=== PATIENT | male | born 1995 | race Caucasian/White ===

== ENCOUNTER 2018-02-08 11:33 | Emergency (ER) | payer BC, SELFPAY ==
[2018-02-08 11:56] VITALS: BP 131/82; PULSE 83; RESP 16; TEMP 36.5; O2SAT 97
--- NOTE | 2018-02-08 12:05 | W.ED.GENAD ---
Discharge Plan Disposition Patient Disposition: HOME Condition: Good Discharge Details Chief Complaint: RespSymp Clinical Impression: URI, acute, Sinusitis Primary Care Provider: Ajit Barone ED Provider: Eyal Pederson Home Meds and New Rx's Prescriptions: New mometasone [Nasonex] 50 mcg/actuation spray,non-aerosol 2 spray CANDELARIA DAILY Qty: 17 RF: 0 azithromycin 500 mg tablet See Label Instructions .ROUTE .COMPLEX Qty: 6 RF: 0 benzonatate [Tessalon Perles] 100 mg capsule 100 mg PO TID PRN (Reason: cough) Qty: 20 RF: 0 Discharge Instructions Instructions: Sinusitis (ED) Additional Instructions: Please take the medication as directed. Please use ibuprofen for your throat pain. Please stop smoking. If you notice any worsening of your symptoms, or any new symptoms such as vomiting, diarrhea, fever, chills, shortness of breath, chest pain, numbness, weakness, or fainting , please return immediately to the emergency department for reevaluation. Please follow up with your primary care provider as soon as possible for reassessment and reevaluation. As always, it was a pleasure participating in your medical care today. Stand Alone Forms: Work Release Referrals: Ajit Barone MD [Primary Care Provider] - Medical Decision Making This is a 22-year-old male with no significant past medical history except for tobacco abuse who presents today for evaluation of upper respiratory infection symptoms. For the last 10-12 days he has had these symptoms, with congestion, runny nose, minimal posterior oropharynx irritation, and cough. Centor criterion are low, he shows no clinical signs of strep throat at this time with no significant erythema, no tender cervical lymphadenopathy, he does have a cough, and he has no fever. Signs and symptoms are consistent with an upper respiratory infection compounded by sinusitis. Lung sounds are clear, vital signs are normal, no tachycardia or hypoxemia. This time with his notable congestion, and signs of sinusitis with mild tenderness on percussion of the frontal and maxillary sinuses I feel he would benefit from treatment. We will give intranasal steroid, one order of Decadron, azithromycin, and Tessalon Perles. We discussed red flags for which to return the patient understands. I have extensively reviewed the treatment plan and discharge instructions with the patient. I have addressed all patient concerns at this time. The patient was made aware of what symptoms to monitor for that would warrant a return to the emergency department. Discussed the plan with the patient, they demonstrate verbal understanding and agreement with our assessment and plan at this time. HPI General Date/Time Provider Initiated Documentation: 02/08/18 11:57. HPI Narrative: This is a 22-year-old male with a past medical history of tobacco abuse smoking roughly 1 pack/day, who presents today for evaluation of upper respiratory infection symptoms. Patient states that for the last 12 days he has had mild congestion, mild cough, stuffiness in his nose, postnasal drip, some runny nose. 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 He has had no significant associated diarrhea. He always wears his mask at work. He denies any fevers, Reiger's, or systemic symptoms. He denies any hemoptysis he does admit to some yellow productive sputum.. Denies PE risk factors such as recent long car rides, immobilization, recent surgery, prior history of DVT or PE, family history of PE or DVT, morbid obesity, exogenous estrogen and smoking, hemoptysis, history of cancer. Patient does admit to multiple other sick contacts at his work with similar symptoms, including symptoms of xluc-zupw-hkd-mouth disease. Patient denies any other complaints at this time. He denies any recent surgeries. He denies any IV or illicit drug use but does admit to marijuana use in addition to his marijuana use. Related Data Home Medications Medication Instructions Recorded Confirmed azithromycin See Label Instructions .ROUTE 02/08/18 .COMPLEX #6 tab benzonatate [Tessalon Perles] 100 mg PO TID PRN #20 cap 02/08/18 mometasone [Nasonex] 2 spray CANDELARIA DAILY #17 gm 02/08/18 Previous Rx's Medication Instructions Recorded azithromycin See Label Instructions .ROUTE 02/08/18 .COMPLEX #6 tab benzonatate [Tessalon Perles] 100 mg PO TID PRN #20 cap 02/08/18 mometasone [Nasonex] 2 spray CANDELARIA DAILY #17 gm 02/08/18 Allergies Allergy/AdvReac Type Severity Reaction Status Date / Time penicillamine Allergy Mild Skin Rash Unverified 02/08/18 12:01 General Stated Complaint: RespSymp OLEKSANDR: 5 Review of Systems Review of Systems All systems reviewed & are unremarkable except as noted in HPI and below PFSH Social History Smoking/Tobacco Use Status: Current every day Exam Narrative Exam Narrative: 1.Const: Well-nourished, Well-developed, appearing stated age 2.Eyes: PERRL, no conjunctival injection, and symmetrical lids. 3.ENT: Atraumatic external nose and ears. Moist MM. Neck: Symmetric, trachea midline, No thyromegaly. Mild cobblestoning of the posterior oropharynx. No significant tonsillar exudate, uvula is midline. No anterior cervical lymphadenopathy. Panic membranes are alexis, pearly, and show no signs of effusion. Head patient demonstrates no signs of meningeal signs. Patient demonstrates good movement of cervical neck. There is no nuchal rigidity, no nuchal tenderness. Patient is able to flex the neck without any difficulty or significant pain. Negative Kernig's and Brudzinski sign. Nasal passageways demonstrates red, erythematous, and irritable appearing naris and turbinates. 4.CVS: +S1/S2, No murmurs or gallops. Peripheral pulses 2+ and equal in all extremities. Brisk capillary refill in all extremities. 5.RESP: Unlabored respiratory effort. Clear to auscultation bilaterally. No wheezes rales or rhonchi. No evidence of abnormal lung sounds. 6.GI: Soft, Nontender/Nondistended, No hepatosplenomegaly. No guarding or rebound. 7.MSK: Normocephalic/Atraumatic, Extremities w/o deformity or ttp No cyanosis or clubbing, Normal movement of all extremities 8.Skin: Warm, Dry. No rashes or lesions. No evidence of lesions on the hands, feet, or the oral mucosa. No clinical evidence of uxna-dxyj-qpw-mouth disease 9.Neuro: range ecologist II-XII grossly intact. Sensation grossly intact, no focal neurologic deficits. 10.Psych: (AAO) x3. Appropriate mood and affect Course Vital Signs Temperature 36.5 C 02/08/18 11:56 Pulse 83 02/08/18 11:56 Respiratory Rate 16 02/08/18 11:56 Blood Pressure 131/82 02/08/18 11:56 Pulse Oximetry 97 02/08/18 11:56 Temperature 36.5 C 02/08/18 11:56 Temperature Source Skin 02/08/18 11:56 Pulse 83 02/08/18 11:56 Respiratory Rate 16 02/08/18 11:56 Respiratory Effort Non-Labored 02/08/18 11:56 Blood Pressure 131/82 02/08/18 11:56 Pulse Oximetry 97 02/08/18 11:56 Pain Level 5 02/08/18 11:56
[2018-02-08] MEDS: Dexamethasone 4 MG TAB 10 MG PO ×2 (12:06)
--- NOTE | 2018-02-08 12:11 | ED.GENADUL_ITS ---
Discharge Plan Disposition Patient Disposition: HOME Condition: Good Discharge Details Chief Complaint: RespSymp Clinical Impression: URI, acute, Sinusitis Primary Care Provider: Ajit Barone ED Provider: Eyal Pederson Home Meds and New Rx's Prescriptions: New mometasone [Nasonex] 50 mcg/actuation spray,non-aerosol 2 spray CANDELARIA DAILY Qty: 17 RF: 0 azithromycin 500 mg tablet See Label Instructions .ROUTE .COMPLEX Qty: 6 RF: 0 benzonatate [Tessalon Perles] 100 mg capsule 100 mg PO TID PRN (Reason: cough) Qty: 20 RF: 0 Discharge Instructions Instructions: Sinusitis (ED) Additional Instructions: Please take the medication as directed. Please use ibuprofen for your throat pain. Please stop smoking. If you notice any worsening of your symptoms, or any new symptoms such as vomiting, diarrhea, fever, chills, shortness of breath , chest pain, numbness, weakness, or fainting , please return immediately to the emergency department for reevaluation. Please follow up with your primary care provider as soon as possible for reassessment and reevaluation. As always, it was a pleasure participating in your medical care today. Stand Alone Forms: Work Release Referrals: Ajit Barone MD [Primary Care Provider] - Medical Decision Making This is a 22-year-old male with no significant past medical history except for tobacco abuse who presents today for evaluation of upper respiratory infection symptoms. For the last 10-12 days he has had these symptoms, with congestion, runny nose, minimal posterior oropharynx irritation, and cough. Centor criterion are low, he shows no clinical signs of strep throat at this time with no significant erythema, no tender cervical lymphadenopathy, he does have a cough, and he has no fever. Signs and symptoms are consistent with an upper respiratory infection compounded by sinusitis. Lung sounds are clear, vital signs are normal, no tachycardia or hypoxemia. This time with his notable congestion, and signs of sinusitis with mild tenderness on percussion of the frontal and maxillary sinuses I feel he would benefit from treatment. We will give intranasal steroid, one order of Decadron, azithromycin, and Tessalon Perles. We discussed red flags for which to return the patient understands. I have extensively reviewed the treatment plan and discharge instructions with the patient. I have addressed all patient concerns at this time. The patient was made aware of what symptoms to monitor for that would warrant a return to the emergency department. Discussed the plan with the patient, they demonstrate verbal understanding and agreement with our assessment and plan at this time. HPI General Date/Time Provider Initiated Documentation: 02/08/18 11:57 . HPI Narrative: This is a 22-year-old male with a past medical history of tobacco abuse smoking roughly 1 pack/day, who presents today for evaluation of upper respiratory infection symptoms. Patient states that for the last 12 days he has had mild congestion, mild cough, stuffiness in his nose, postnasal drip, some runny nose. 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 He has had no significant associated diarrhea. He always wears his mask at work. He denies any fevers, Reiger's, or systemic symptoms. He denies any hemoptysis he does admit to some yellow productive sputum.. Denies PE risk factors such as recent long car rides, immobilization, recent surgery, prior history of DVT or PE, family history of PE or DVT, morbid obesity, exogenous estrogen and smoking , hemoptysis, history of cancer. Patient does admit to multiple other sick contacts at his work with similar symptoms, including symptoms of krdg-jjxc-ill- mouth disease. Patient denies any other complaints at this time. He denies any recent surgeries. He denies any IV or illicit drug use but does admit to marijuana use in addition to his marijuana use. Related Data Home Medications Medication Instructions Recorded Confirmed azithromycin See Label Instructions .ROUTE 02/08/18 .COMPLEX #6 tab benzonatate [Tessalon Perles] 100 mg PO TID PRN #20 cap 02/08/18 mometasone [Nasonex] 2 spray CANDELARIA DAILY #17 gm 02/08/18 Previous Rx's Medication Instructions Recorded azithromycin See Label Instructions .ROUTE 02/08/18 .COMPLEX #6 tab benzonatate [Tessalon Perles] 100 mg PO TID PRN #20 cap 02/08/18 mometasone [Nasonex] 2 spray CANDELARIA DAILY #17 gm 02/08/18 Allergies Allergy/AdvReac Type Severity Reaction Status Date / Time penicillamine Allergy Mild Skin Rash Unverified 02/08/18 12:01 General Stated Complaint: RespSymp OLEKSANDR: 5 Review of Systems Review of Systems All systems reviewed & are unremarkable except as noted in HPI and below PFSH Social History Smoking/Tobacco Use Status: Current every day Exam Narrative Exam Narrative: 1.Const: Well-nourished, Well-developed, appearing stated age 2.Eyes: PERRL, no conjunctival injection, and symmetrical lids. 3.ENT: Atraumatic external nose and ears. Moist MM. Neck: Symmetric, trachea midline, No thyromegaly. Mild cobblestoning of the posterior oropharynx. No significant tonsillar exudate, uvula is midline. No anterior cervical lymphadenopathy. Panic membranes are alexis, pearly, and show no signs of effusion. Head patient demonstrates no signs of meningeal signs. Patient demonstrates good movement of cervical neck. There is no nuchal rigidity, no nuchal tenderness. Patient is able to flex the neck without any difficulty or significant pain. Negative Kernig's and Brudzinski sign. Nasal passageways demonstrates red, erythematous, and irritable appearing naris and turbinates. 4.CVS: +S1/S2, No murmurs or gallops. Peripheral pulses 2+ and equal in all extremities. Brisk capillary refill in all extremities. 5.RESP: Unlabored respiratory effort. Clear to auscultation bilaterally. No wheezes rales or rhonchi. No evidence of abnormal lung sounds. 6.GI: Soft, Nontender/Nondistended, No hepatosplenomegaly. No guarding or rebound. 7.MSK: Normocephalic/Atraumatic, Extremities w/o deformity or ttp No cyanosis or clubbing, Normal movement of all extremities 8.Skin: Warm, Dry. No rashes or lesions. No evidence of lesions on the hands, feet, or the oral mucosa. No clinical evidence of galu-aotc-kwm-mouth disease 9.Neuro: train attendant II-XII grossly intact. Sensation grossly intact, no focal neurologic deficits. 10.Psych: (AAO) x3. Appropriate mood and affect Course Vital Signs Temperature 36.5 C 02/08/18 11:56 Pulse 83 02/08/18 11:56 Respiratory Rate 16 02/08/18 11:56 Blood Pressure 131/82 02/08/18 11:56 Pulse Oximetry 97 02/08/18 11:56 Temperature 36.5 C 02/08/18 11:56 Temperature Source Skin 02/08/18 11:56 Pulse 83 02/08/18 11:56 Respiratory Rate 16 02/08/18 11:56 Respiratory Effort Non-Labored 02/08/18 11:56 Blood Pressure 131/82 02/08/18 11:56 Pulse Oximetry 97 02/08/18 11:56 Pain Level 5 02/08/18 11:56
== END 2018-02-08 12:05 | disposition home or self-care (01) ==
PROVIDERS: Emergency Provider Student in an Organized Health Care Education/Training Program; PCP Internal Medicine
DX: J06.9 Acute upper respiratory infection, unspecified (principal); J01.90 Acute sinusitis, unspecified; F17.210 Nicotine dependence, cigarettes, uncomplicated
CPT/HCPCS: 99283; J8540

== ENCOUNTER 2018-05-01 11:24 | Emergency (ER) | payer BC, SELFPAY ==
[2018-05-01] VITALS (10 sets, daily range): BP systolic 108–128; BP diastolic 58–72; PULSE 64–96; RESP 16–26; TEMP 36.6–37.1; O2SAT 94–100
--- NOTE | 2018-05-01 11:31 | W.ED.GENAD ---
Discharge Plan Disposition Patient Disposition: HOME Discharge Details Chief Complaint: Seizure Clinical Impression: Observed seizure-like activity Primary Care Provider: Ajit Barone ED Provider: Matthew Cruz Home Meds and New Rx's Prescriptions: No Action sertraline 50 mg Tablet 50 mg PO DAILY AM RF: 0 Discharge Instructions Instructions: New-Onset Seizure in Adults (ED) Additional Instructions: Please follow-up with your doctor. Call tomorrow. Please follow-up with neurology. Please contact your primary care physician to arrange follow-up. No driving a motor vehicle or operating heavy machinery until you are cleared to do so. If he were to have a recurrent seizure while driving a car or operating machinery this may result in injury or to yourself or others. You must be cleared by a doctor before you return to driving or operating heavy machinery. Return to the ER for any worsening or new concerning symptoms. Stand Alone Forms: Work Release Referrals: Ajit Barone MD [Primary Care Provider] - Lidia Marin MD [ [facility] STAFF PHYSICIAN] - Medical Decision Making 11:35 --patient arrives with EMS and seen immediately on arrival. 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 Consider acute life-threatening intracranial hemorrhage: Plan to obtain stat CT head. Patient obtunded on my exam but intermittently combative here per nursing. I will order ketamine to be administered to allow for CT imaging if necessary for acute agitation. --CT of the head interpreted by radiology: No acute intracranial hemorrhage. There is nonspecific fluid within the ethmoid sinuses and right maxillary sinus. Family here with patient and updated as to plan. --15:35 --patient reassessed and is fully alert and oriented. He is requesting discharge. Patient has mild headache. He was given a Tylenol for this. He has no neck pain or stiffness. Negative Kernig and Brudzinski sign. Given exam findings I feel that bacterial meningitis is not present. Patient has no sinus pain. Patient will require follow-up with neurology for new onset seizure. I will asked care management to assist in arranging this follow-up. Disposition decision was made weighing the risks and benefits of hospitalization versus outpatient treatment, the risk for further decompensation, and the patient's wishes. The patient was stable and requested discharge. Prior to discharge, my usual and customary return precautions were reviewed with the patient - this included follow-up instructions and reason to return to the emergency department if condition worsens, does not improve as expected, or other new concerns arise. HPI General Mode of arrival: EMS. Date/Time Provider Initiated Documentation: 05/01/18 11:29. Limitations to Documentation: altered mental status. Information obtained by: EMS. HPI Narrative: 23-year-old male with history of ADHD, arrives with EMS with altered mental status. History and review of systems limited secondary to altered mental status. Per EMS, patient significant other noted that he was complaining of generally not feeling well yesterday, he was on the toilet this morning and had seizure-like activity and was unconscious. When EMS arrived they found him to be somnolent and then quite aggressive and agitated and lacking capacity. He was given Versed 10 mg x2 by EMS and became more sedate. Related Data Home Medications Medication Instructions Recorded Confirmed sertraline 50 mg PO DAILY AM 05/01/18 05/01/18 Allergies Allergy/AdvReac Type Severity Reaction Status Date / Time penicillamine Allergy Mild Skin Rash Unverified 05/01/18 12:22 erythromycin base AdvReac Unverified 05/01/18 12:25 sulfamethoxazole AdvReac Unverified 05/01/18 12:25 [From Bactrim] trimethoprim [From Bactrim] AdvReac Unverified 05/01/18 12:25 General OLEKSANDR: 5 Review of Systems Review of Systems Unobtainable due to mental status [facility] Medical History ADHD (Chronic) Social History Smoking/Tobacco Use Status: Current every day Exam Const General: no acute distress Orientation: obtunded Limitations: altered mental status HENMT Head: normocephalic and atraumatic Mouth: moist mucous membranes Eyes Conjunctivae: normal conjunctivae Sclera: normal sclerae Pupils: pupil size bilaterally 3 Neck Neck: trachea midline and supple Resp Effort & Inspection: no respiratory distress Auscultation: clear to auscultation bilaterally, no rales, no rhonchi and no wheezes Cardio Jugular venous pressure: no JVD Rate: regular rate and not tachycardic Rhythm: regular rhythm GI Palpation: soft, not firm, no guarding, no masses, not rigid and nontender Skin General skin exam: no rashes or lesions noted Neuro General: obtunded Motor: fasciculations Extrem General: no edema
--- NOTE | 2018-05-01 11:34 | ED.GENADUL_ITS ---
Discharge Plan Disposition Patient Disposition: HOME Discharge Details Chief Complaint: Seizure Clinical Impression: Observed seizure-like activity Primary Care Provider: Ajit Barone ED Provider: Matthew Cruz Home Meds and New Rx's Prescriptions: No Action sertraline 50 mg Tablet 50 mg PO DAILY AM RF: 0 Discharge Instructions Instructions: New-Onset Seizure in Adults (ED) Additional Instructions: Please follow-up with your doctor. Call tomorrow. Please follow-up with neurology. Please contact your primary care physician to arrange follow-up. No driving a motor vehicle or operating heavy machinery until you are cleared to do so. If he were to have a recurrent seizure while driving a car or operating machinery this may result in injury or to yourself or others. You must be cleared by a doctor before you return to driving or operating heavy machinery. Return to the ER for any worsening or new concerning symptoms. Stand Alone Forms: Work Release Referrals: Ajit Barone MD [Primary Care Provider] - Lidia Marin MD [ [facility] STAFF PHYSICIAN] - Medical Decision Making 11:35 --patient arrives with EMS and seen immediately on arrival. 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 Consider acute life-threatening intracranial hemorrhage: Plan to obtain stat CT head. Patient obtunded on my exam but intermittently combative here per nursing. I will order ketamine to be administered to allow for CT imaging if necessary for acute agitation. --CT of the head interpreted by radiology: No acute intracranial hemorrhage. There is nonspecific fluid within the ethmoid sinuses and right maxillary sinus. Family here with patient and updated as to plan. --15:35 --patient reassessed and is fully alert and oriented. He is requesting discharge. Patient has mild headache. He was given a Tylenol for this. He has no neck pain or stiffness. Negative Kernig and Brudzinski sign. Given exam findings I feel that bacterial meningitis is not present. Patient has no sinus pain. Patient will require follow-up with neurology for new onset seizure. I will asked care management to assist in arranging this follow-up. Disposition decision was made weighing the risks and benefits of hospitalization versus outpatient treatment, the risk for further decompensation, and the patient's wishes. The patient was stable and requested discharge. Prior to discharge, my usual and customary return precautions were reviewed with the patient - this included follow-up instructions and reason to return to the emergency department if condition worsens, does not improve as expected, or other new concerns arise. HPI General Mode of arrival: EMS . Date/Time Provider Initiated Documentation: 05/01/18 11:29 . Limitations to Documentation: altered mental status . Information obtained by: EMS . HPI Narrative: 23-year-old male with history of ADHD, arrives with EMS with altered mental status. History and review of systems limited secondary to altered mental status. Per EMS, patient significant other noted that he was complaining of generally not feeling well yesterday, he was on the toilet this morning and had seizure-like activity and was unconscious. When EMS arrived they found him to be somnolent and then quite aggressive and agitated and lacking capacity. He was given Versed 10 mg x2 by EMS and became more sedate. Related Data Home Medications Medication Instructions Recorded Confirmed sertraline 50 mg PO DAILY AM 05/01/18 05/01/18 Allergies Allergy/AdvReac Type Severity Reaction Status Date / Time penicillamine Allergy Mild Skin Rash Unverified 05/01/18 12:22 erythromycin base AdvReac Unverified 05/01/18 12:25 sulfamethoxazole AdvReac Unverified 05/01/18 12:25 [From Bactrim] trimethoprim [From Bactrim] AdvReac Unverified 05/01/18 12:25 General OLEKSANDR: 5 Review of Systems Review of Systems Unobtainable due to mental status [facility] Medical History ADHD (Chronic) Social History Smoking/Tobacco Use Status: Current every day Exam Const General: no acute distress Orientation: obtunded Limitations: altered mental status HENMT Head: normocephalic and atraumatic Mouth: moist mucous membranes Eyes Conjunctivae: normal conjunctivae Sclera: normal sclerae Pupils: pupil size bilaterally 3 Neck Neck: trachea midline and supple Resp Effort & Inspection: no respiratory distress Auscultation: clear to auscultation bilaterally, no rales, no rhonchi and no wheezes Cardio Jugular venous pressure: no JVD Rate: regular rate and not tachycardic Rhythm: regular rhythm GI Palpation: soft, not firm, no guarding, no masses, not rigid and nontender Skin General skin exam: no rashes or lesions noted Neuro General: obtunded Motor: fasciculations Extrem General: no edema
--- NOTE | 2018-05-01 11:47 | DI.CT_ITS ---
SYMPTOM/DIAGNOSIS: ALTERED MENTAL STATUS, ? SEIZURE NONCONTRAST HEAD CT: No intracranial hemorrhage, mass or infarct is seen. The ventricles are normal in size. There is no evidence of skull fracture. There is minimal sinus mucosal thickening. IMPRESSION: No acute abnormality.
--- NOTE | 2018-05-01 11:56 | DI.VRAD_ITS ---
EXAM: CT Head Without Contrast EXAM DATE/TIME: 05/01/2018 11:32 AM CLINICAL HISTORY: 23 years old, male; Signs and symptoms; Altered mental status/memory loss; Additional info: ? Seizure TECHNIQUE: Axial computed tomography images of the head/brain without contrast. Coronal and sagittal reformatted images were created and reviewed. COMPARISON: CT HEAD WITHOUT CONTRAST 05/07/2011 11:49 AM FINDINGS: Brain: Normal. No hemorrhage. No significant white matter disease. No edema. Ventricles: Normal. No ventriculomegaly. Bones/joints: Normal. No acute fracture. Sinuses: There is nonspecific fluid within the ethmoid sinuses and right maxillary sinus Mastoid air cells: Normal as visualized. No mastoid effusion. Soft tissues: Normal. IMPRESSION: No acute intracranial hemorrhage There is nonspecific fluid within the ethmoid sinuses and right maxillary sinus Dictated and Authenticated by: Samreen Lau MD. Ordering:BOBBI Castro MD
[2018-05-01] MEDS: Ketamine 500 MG/5 ML VIAL (12:04)
[2018-05-01 12:19] LABS: Bilirubin Negative (Negative); Blood Trace-intact (Negative); Clarity Clear; Glucose Negative (Negative); Ketones Negative (Negative); Leukocyte Esterase Negative (Negative); Nitrite Negative (Negative); Specific Gravity 1.025 (1.005-1.025); Urobilinogen 0.2 EU/dL (Up TO 0.2)
[2018-05-01 12:24] LABS: Abs Immature Grans 0.05 k/cumm (0.0-0.09); Absolute Basophil Count 0.03 k/cumm (0.0-0.2); Absolute Eosinophil Count 0.07 k/cumm (0.0-0.7); Basophils % 0.2; Eosinophils % 0.5; HCT 44.6 % (40.0-50.0); HGB 15.3 g/dL (13.5-17.5); Immature Grans % 0.3; Lymphocytes % 8.4; Mean Corp. HGB Concentration 34.3 g/dL (32.0-36.0); Mean Corpuscular Hemoglobin 30.5 pg (27.0-33.0); Mean Corpuscular Volume 88.8 fL (80-95); Mean Platelet Volume 9.6 fL (8.0-11.0); Neutrophils % 83.6; Platelet Count 209 x1000/uL (130-400); RBC 5.02 m/cumm (4.50-6.00); RBC Distribution Width 14.3 % (11.8-14.1); White Blood Cell Count 14.35 k/cumm (4.4-10.8)
[2018-05-01 12:28] LABS: Absolute Lymphocyte Count 1.21 k/cumm (1.2-3.4)
[2018-05-01 12:29] LABS: Bacteria Rare HPF (Negative); C & S Indicated? No; Casts Negative LPF (Negative); Crystals Negative HPF (Negative); Epithelial Cells Rare HPF (Negative); Mucus Trace (Negative); RBC 0-2 (0-2); WBC 0-2 HPF (0-5)
[2018-05-01 12:41] LABS: *AMPHETAMINES SCREEN URINE Negative (Negative); *BARBITURATES SCREEN URINE Negative (Negative); *BENZODIAZEPINES SCREEN URINE POSITIVE (Negative); Cannabinoids THC POSITIVE (Negative); Cocaine Screen,Urine Negative (Negative); METHADONE URINE SCREEN Negative (Negative); OPIATES URINE SCREEN Negative (Negative)
[2018-05-01 12:42] LABS: Tricyclic Antidepressants Negative (Negative)
[2018-05-01 12:47] LABS: Magnesium 2.5 mg/dL (1.8-2.4); TSH (W/Ref FT4) 1.13 uIU/mL (0.358-3.74)
[2018-05-01 12:55] LABS: ALT 39 U/L (12-78); AST 15 U/L (15-37); Albumin 4.1 g/dL (3.4-5.0); Alkaline Phosphatase 47 U/L (46-116); Anion Gap 6.5 mmol/L (3-11); BUN 24 mg/dL (7-18); Bilirubin, Total 0.2 mg/dL (0.2-1.0); CO2 28.5 mmol/L (21.0-32.0); CREATININE 1.03 mg/dL (0.70-1.30); Calcium 9.2 mg/dL (8.5-10.1); Chloride 104 mmol/L (98-107); ETHANOL BLOOD < 3.0 mg/dL (<3); Glucose 94 mg/dL (70-100); Potassium 4.4 mmol/L (3.5-5.1); Sodium 139 mmol/L (136-145); Total Protein 6.8 g/dL (6.4-8.2)
[2018-05-01 12:56] LABS: Troponin I < 0.02 ng/mL (0.00-0.06)
[2018-05-01] MEDS: Acetaminophen 325 MG TAB 650 MG PO (15:15)
== END 2018-05-01 16:35 | disposition home or self-care (01) ==
PROVIDERS: Emergency Provider Student in an Organized Health Care Education/Training Program; PCP Internal Medicine
DX: R45.1 Restlessness and agitation (principal); R56.9 Unspecified convulsions
CPT/HCPCS: 36415; 80053; 80307; 96374; 99284; 70450; 80320; 81003; 81015; 83735; 84443; 84484; 85025

== ENCOUNTER 2018-05-04 01:35 | Outpatient (CLI) | payer BC, SELFPAY ==
--- NOTE | 2018-05-04 09:24 | PDOC.CMPRO ---
Care Management Progress Note 1/-Dr. Dc Cruz had requested neurology f/u for seizures as soon as possible. Neurology faxed back that they have scheduled Beto for June 09.
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
== END 2018-05-04 01:55 ==
PROVIDERS: PCP Internal Medicine; Visit Provider Internal Medicine
DX: R56.9 Unspecified convulsions (principal)
CPT/HCPCS: 70551

== ENCOUNTER 2019-10-29 17:45 | Emergency (ER) | payer BC, SELFPAY ==
[2019-10-29 17:54] VITALS: BP 120/77; PULSE 88; RESP 16; TEMP 36.7; O2SAT 97
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
[2019-10-29 19:18] VITALS: BP 110/64; PULSE 78; RESP 18; TEMP 36.7; O2SAT 96
[2019-10-29 19:19] VITALS: BP 110/64; PULSE 78; RESP 18; TEMP 36.7; O2SAT 96
== END 2019-10-29 19:20 | disposition home or self-care (01) ==
PROVIDERS: Emergency Provider Physician Assistant; PCP Internal Medicine
DX: S09.90XA Unspecified injury of head, initial encounter (principal); S00.83XA Contusion of other part of head, initial encounter; M54.2 Cervicalgia; W50.0XXA Accidental hit or strike by another person, initial encounter; Y93.64 Activity, baseball; Z87.820 Personal history of traumatic brain injury; G40.909 Epilepsy, unspecified, not intractable, without status epilepticus
CPT/HCPCS: 99284; 70450; 70486; 72125; 99285; L0172

== ENCOUNTER 2020-06-04 13:49 | Outpatient (REF) | payer BC, SELFPAY ==
[2020-06-05 14:06] LABS: COVID-19 RT-PCR UVMMC Result Positive (Negative)
== END 2020-06-04 13:50 | disposition home or self-care (01) ==
LOC: NCHCN 13:49
PROVIDERS: PCP Internal Medicine; Visit Provider Internal Medicine
DX: Z20.822 Contact with and (suspected) exposure to COVID-19 (principal)
CPT/HCPCS: U0003

== ENCOUNTER 2020-12-26 17:39 | Outpatient (REF) | payer BC, SELFPAY ==
[2020-12-27 11:21] LABS: COVID-19 RT-PCR UVMMC Result Negative (Negative)
== END 2020-12-26 17:40 | disposition home or self-care (01) ==
LOC: NCHCN 17:39
PROVIDERS: PCP Internal Medicine; Visit Provider Internal Medicine
DX: Z20.822 Contact with and (suspected) exposure to COVID-19 (principal)
CPT/HCPCS: U0003

== ENCOUNTER 2021-02-12 21:55 | Outpatient (REF) | payer BC, SELFPAY ==
[2021-02-12 20:02] LABS: Bilirubin Negative (Negative); Blood Negative (Negative); Clarity Clear (Clear); Glucose Negative (Negative); Ketones Negative (Negative); Leukocyte Esterase Negative (Negative); Nitrite Negative (Negative); Specific Gravity >= 1.030 (1.005-1.025); Urobilinogen 0.2 EU/dL (Up TO 0.2)
[2021-02-14 16:44] LABS: Chlamydia Result Negative (Negative); GC Result Negative (Negative)
== END 2021-02-12 21:56 | disposition home or self-care (01) ==
LOC: NCHCN 21:55
PROVIDERS: PCP Internal Medicine; Visit Provider Internal Medicine
DX: R36.1 Hematospermia (principal)
CPT/HCPCS: 87491; 87591; 81003

== ENCOUNTER 2021-06-28 11:58 | Emergency (ER) | payer OTHER, BC, SELFPAY ==
[2021-06-28 12:05] VITALS: BP 137/81; PULSE 78; RESP 14; TEMP 36.7; O2SAT 98
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
--- NOTE | 2021-06-28 12:30 | RT.EKG_ITS ---
APPROVED REPORT Exam: Resting ECG Reason for Exam: LOC Patient Location: E HR:68 bpm ECG Measurements Heart Rate 68 AXIS SC 133 P 24 QRSd 100 QRS 37 QT 377 T 25 QTc 401 Conclusion Sinus rhythm...normal P axis, V-rate 60- 99 ST elev, probable normal early repol pattern...ST elevation, age<55 normal sinus rhythm, normal axis, normal intervals, early repol at J point anterior lateral leads, no reciprical changes
[2021-06-28 12:57] LABS: Abs Immature Grans 0.02 10^3/uL (0.0-0.06); Absolute Basophil Count 0.04 10^3/uL (0.0-0.2); Absolute Eosinophil Count 0.04 10^3/uL (0.0-0.7); Absolute Lymphocyte Count 1.54 10^3/uL (1.2-3.4); Absolute Monocyte Count 0.74 10^3/uL (0.1-0.8); Absolute Neutrophil Count 7.96 10^3/uL (1.2-6.7); Basophils % 0.4; Eosinophils % 0.4; HCT 47.5 % (40.0-50.0); HGB 16.1 g/dL (13.5-17.5); Immature Grans % 0.2; Lymphocytes % 14.9; MCH 30.1 pg (27.0-33.0); MCHC 33.9 % (32.0-36.0); MPV 9.6 fL (8.0-11.0); Monocytes % 7.2; Neutrophils % 76.9; Nucleated RBC 0 %; Platelet Count 232 10^3/uL (130-400); RBC 5.34 10^6/uL (4.36-5.78); RDW 12.8 % (11.8-14.1); RDW-SD 42.2 fL; WBC 10.34 10^3/uL (4.4-10.8)
[2021-06-28 13:15] LABS: ALT 24 U/L (16-63); AST 15 U/L (15-37); Albumin 4.1 g/dL (3.4-5.0); Alkaline Phosphatase 49 U/L (46-116); Anion Gap 8.6 mmol/L (3-11); BUN 16 mg/dL (7-18); Bilirubin, Total 0.5 mg/dL (0.2-1.0); CO2 25.4 mmol/L (21.0-32.0); CREATININE 0.9 mg/dL (0.70-1.30); Calcium 8.8 mg/dL (8.5-10.1); Chloride 104 mmol/L (98-107); Glucose 111 mg/dL (74-106); Magnesium 2.1 mg/dL (1.8-2.4); Potassium 4.4 mmol/L (3.5-5.1); Sodium 138 mmol/L (136-145); Total Protein 7.1 g/dL (6.4-8.2)
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
== END 2021-06-28 14:35 | disposition left against medical advice (07) ==
PROVIDERS: Emergency Provider Physician Assistant; PCP Internal Medicine
DX: Z04.1 Encounter for examination and observation following transport accident (principal); R41.82 Altered mental status, unspecified; R51.9 Headache, unspecified; M54.2 Cervicalgia; R55 Syncope and collapse; Z53.29 Procedure and treatment not carried out because of patient's decision for other reasons; R56.9 Unspecified convulsions
CPT/HCPCS: 36415; 80053; 93005; 96374; 99284; 70450; 72125; 83735; 85025; 93010

== ENCOUNTER 2021-06-28 15:13 | Emergency (ER) | payer OTHER, BC, SELFPAY ==
[2021-06-28 15:18] VITALS: BP 125/83; PULSE 69; RESP 14; TEMP 36.3; O2SAT 97
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
[2021-06-28] MEDS: levETIRAcetam 250 MG TAB 1000 MG PO (16:31)
[2021-06-28] MEDS: DIVALPROEX 500 MG, DIVALPROEX 250 MG 750 MG PO (16:31)
[2021-06-28 16:37] VITALS: BP 140/98; PULSE 74; RESP 16; TEMP 36.5; O2SAT 100
[2021-06-28 19:23] LABS: VALPROIC ACID < 3 ug/mL
== END 2021-06-28 16:38 | disposition home or self-care (01) ==
PROVIDERS: Emergency Provider Physician Assistant; PCP Internal Medicine
DX: R56.9 Unspecified convulsions (principal)
CPT/HCPCS: 99283; 80164

== ENCOUNTER 2021-12-10 16:11 | Emergency (ER) | payer SELFPAY ==
[2021-12-10] VITALS (15 sets, daily range): BP systolic 118–130; BP diastolic 63–83; PULSE 67–84; RESP 12–28; TEMP 36.6; O2SAT 94–99
--- NOTE | 2021-12-10 16:23 | ED.GENADUL_ITS ---
Discharge Plan Disposition Patient Disposition: HOME Condition: Improving Discharge Details Clinical Impression: Seizure Primary Care Provider: Ajit Barone ED Provider: Lj Mack Home Meds and New Rx's Prescriptions: New lamotrigine [Subvenite] 25 mg tablet 25 mg PO BID Qty: 20 0RF Continued sertraline 50 mg Tablet 50 mg PO DAILY AM lamotrigine 100 mg Tablet 100 mg PO BID divalproex [Depakote ER] 250 mg Tablet Extended Release 24 Hr 750 mg PO BID Discharge Instructions Instructions: Recurrent Seizures in Adults (ED) Additional Instructions: Work-up in the ER does not reveal any obvious emergent process. I was able to discuss your case with the neurology team at [facility]. They recommend that once again he discontinue driving. We will increase your Lamictal dose from 100 mg twice a day up to 125 mg twice a day, I have provided you a prescription of 25 mg tablets. Your Depakote blood test level is still pending. Please watch for new or worsening symptoms and return to the ER for any concerns. Your specialist office should be contacting you likely in the next 24-48 hours but if you do not hear from them I recommend you reach out to their office to discuss your ER visit need for outpatient reevaluation. Discharge Data Discharge Date/Time-TO BE ENTERED AT DEPARTURE: 12/10/21 18:27 Medical Decision Making This is a 26-year-old gentleman with known seizure disorder presenting to the ER for what he believes to be a seizure just prior to arrival. He reports diffuse mild body aches otherwise is asymptomatic. Clinically he appears well, nontoxic, neurologically intact and hemodynamically stable. Plan is to obtain IV access, give IV fluid, obtain routine screening laboratory values and I will consult with his neurology team at [facility]. I did recommend a head CT; however, he declines this and understands the risks in doing so. We will also obtain a EKG as cannot rule out syncopal episode or arrhythmia. Laboratory values are unremarkable for any obvious emergent process. Patient remains asymptomatic and requesting discharge. He is agreeable to awaiting neurology consultation. I was able to speak with the neurologist on-call at [facility] regarding the patient's presentation and case, he recommends increasing his lamotrigine dose to 125 mg twice daily and he will reach out to his epilepsy specialist per sonally to be sure he has prompt outpatient follow-up. He does recommend that the patient once again stops driving. No further recommendations here in the ER. I discussed the conversation with the neurologist with both the patient and his mother. I will give his first dose of his increased medication as well as a prescription of 25 mg tablets. Strict discharge and return precautions were provided. Patient understands, is agreeable to this plan, and has no additional questions or concerns upon discharge. This documentation was generated using [employer] system, please disregard any oddities of phrase or misspellings. Medical Records Medical records reviewed: Yes I reviewed the patient's medical records. Lab Data Lab results reviewed: Yes I reviewed the patient's lab results. Labs: Laboratory Tests Range/Units 12/10/21 12/10/21 12/10/21 16:25 16:25 16:25 WBC (4.4-10.8) 10^3/uL 9.28 RBC (4.36-5.78) 10^6/uL 4.98 Hgb (13.5-17.5) g/dL 15.3 Hct (40.0-50.0) % 43.3 MCV (80-95) fL 87 MCH (27.0-33.0) pg 30.7 MCHC (32.0-36.0) % 35.3 RDW (11.8-14.1) % 12.7 Plt Count (130-400) 10^3/uL 250 MPV (8.0-11.0) fL 9.6 Immature Gran % 0.3 Neutrophils % 72.0 Lymphocytes % 21.6 Monocytes % 5.4 Eosinophils % 0.5 Basophils % 0.2 Nucleated RBC % (0.0-0.3) % 0.0 Absolute Neutrophils (1.2-6.7) 10^3/uL 6.68 Absolute Lymphocytes (1.2-3.4) 10^3/uL 2.00 Absolute Monocytes (0.1-0.8) 10^3/uL 0.50 Absolute Eosinophils (0.0-0.7) 10^3/uL 0.05 Absolute Basophils (0.0-0.2) 10^3/uL 0.02 Sodium (136-145) mmol/L 143 Potassium (3.5-5.1) mmol/L 3.8 Chloride (98-107) mmol/L 107 Carbon Dioxide (21.0-32.0) mmol/L 25.3 Anion Gap (3-11) mmol/L 10.7 BUN (7-18) mg/dL 21 H Creatinine (0.70-1.30) mg/dL 1.1 Estimated GFR/1.73 m2 (mL/min/1.73m2) >= 60.00 Glucose (74-106) mg/dL 116 H Calcium (8.5-10.1) mg/dL 8.7 Magnesium (1.8-2.4) mg/dL 1.9 Total Bilirubin (0.2-1.0) mg/dL 0.3 AST (15-37) U/L 21 ALT (16-63) U/L 35 Alkaline Phosphatase (46-116) U/L 48 Total Protein (6.4-8.2) g/dL 6.5 Albumin (3.4-5.0) g/dL 3.7 Lipase (73-393) U/L 98 TSH (0.36-3.74) uIU/mL 3.45 Urine Color (Yellow) Urine Clarity (Clear) Urine pH (5-8) Ur Specific Benton (1.005-1.025) Urine Protein (Negative) mg/dL Urine Ketones (Negative) mg/dL Urine Blood (Negative) Urine Nitrite (Negative) Urine Bilirubin (Negative) Urine Urobilinogen (Up TO 0.2) EU/dL Ur Leukocyte Esterase (Negative) Urine RBC (0-2) HPF Urine WBC (0-5) HPF Ur Epithelial Cells (Negative) HPF Urine Crystals (Negative) HPF Urine Bacteria (Negative) HPF Urine Mucus (Negative) Urine Other (Negative) Ur Culture Indicated? Urine Glucose (Negative) mg/dL Urine Opiates Screen (Negative) Urine Methadone Screen (Negative) Ur Barbiturates Screen (Negative) Valproic Acid ( - 150) ug/mL < 3 Lamotrigine (2.5 - 15.0) mcg/mL Ur Tricyclics Screen (Negative) Ur Amphetamines Screen (Negative) U Benzodiazepines Scrn (Negative) Urine Cocaine Screen (Negative) Ur THC Screen (Negative) Range/Units 12/10/21 12/10/21 12/10/21 17:25 18:14 18:14 WBC (4.4-10.8) 10^3/uL RBC (4.36-5.78) 10^6/uL Hgb (13.5-17.5) g/dL Hct (40.0-50.0) % MCV (80-95) fL MCH (27.0-33.0) pg MCHC (32.0-36.0) % RDW (11.8-14.1) % Plt Count (130-400) 10^3/uL MPV (8.0-11.0) fL Immature Gran % Neutrophils % Lymphocytes % Monocytes % Eosinophils % Basophils % Nucleated RBC % (0.0-0.3) % Absolute Neutrophils (1.2-6.7) 10^3/uL Absolute Lymphocytes (1.2-3.4) 10^3/uL Absolute Monocytes (0.1-0.8) 10^3/uL Absolute Eosinophils (0.0-0.7) 10^3/uL Absolute Basophils (0.0-0.2) 10^3/uL Sodium (136-145) mmol/L Potassium (3.5-5.1) mmol/L Chloride (98-107) mmol/L Carbon Dioxide (21.0-32.0) mmol/L Anion Gap (3-11) mmol/L BUN (7-18) mg/dL Creatinine (0.70-1.30) mg/dL Estimated GFR/1.73 m2 (mL/min/1.73m2) Glucose (74-106) mg/dL Calcium (8.5-10.1) mg/dL Magnesium (1.8-2.4) mg/dL Total Bilirubin (0.2-1.0) mg/dL AST (15-37) U/L ALT (16-63) U/L Alkaline Phosphatase (46-116) U/L Total Protein (6.4-8.2) g/dL Albumin (3.4-5.0) g/dL Lipase (73-393) U/L TSH (0.36-3.74) uIU/mL Urine Color (Yellow) Yellow Urine Clarity (Clear) Clear Urine pH (5-8) 6.0 Ur Specific Benton (1.005-1.025) >= 1.030 H Urine Protein (Negative) mg/dL Negative Urine Ketones (Negative) mg/dL Negative Urine Blood (Negative) Trace-intact H Urine Nitrite (Negative) Negative Urine Bilirubin (Negative) Negative Urine Urobilinogen (Up TO 0.2) EU/dL 0.2 Ur Leukocyte Esterase (Negative) Negative Urine RBC (0-2) HPF 3-5 H Urine WBC (0-5) HPF 3-5 Ur Epithelial Cells (Negative) HPF Negative Urine Crystals (Negative) HPF Negative Urine Bacteria (Negative) HPF Negative Urine Mucus (Negative) Negative Urine Other (Negative) Few Yeast Ur Culture Indicated? No Urine Glucose (Negative) mg/dL Negative Urine Opiates Screen (Negative) Negative Urine Methadone Screen (Negative) Negative Ur Barbiturates Screen (Negative) Negative Valproic Acid ( - 150) ug/mL Lamotrigine (2.5 - 15.0) mcg/mL <0.2 L Ur Tricyclics Screen (Negative) Negative Ur Amphetamines Screen (Negative) Negative U Benzodiazepines Scrn (Negative) Negative Urine Cocaine Screen (Negative) Negative Ur THC Screen (Negative) Positive A ECG Data Attestation: I personally reviewed and interpreted this ECG (s) as follows: Interpretation: Sinus rhythm, ventricular rate of 68. ST elevation likely secondary to early repolarization pattern. This appears unchanged when compared to previous EKG on 06-30-2021 HPI General Mode of arrival: EMS . Date/Time Provider Initiated Documentation: 12/10/21 16:21 . Limitations to Documentation: no limitations . Information obtained by: patient, family and EMS . HPI Narrative: This is a 26-year-old gentleman with a known seizure disorder, on both Lamictal and Depakote, followed at [facility] by neurology, presenting for what he describes as an unwitnessed seizure today. He was outside doing [employer], had no previous seizure symptoms, and awoke on the ground. Patient is unsure how long he was unconscious for. He reports that he has not had a seizure in nearly a year and was just given driving privileges back over the summer. He denies biting his tongue or any urinary incontinence. The only complaint he has is that of diffuse mild body pain which she believes is likely secondary to his seizure and convulsions. He denies recent illness or trauma. He reports taking his medications as directed. He denies lack of sleep, change of appetite, drug use, etc. Related Data Home Medications Medication Instructions Recorded Confirmed sertraline 50 mg tablet 50 mg PO DAILY AM 05/01/18 12/10/21 divalproex 250 mg tablet,extended 750 mg PO BID 10/29/19 12/10/21 release 24 hr (Depakote ER) lamotrigine 100 mg tablet 100 mg PO BID 10/29/19 12/10/21 lamotrigine 25 mg tablet 25 mg PO BID #20 tabs 12/10/21 (Subvenite) Previous Rx's Medication Instructions Recorded lamotrigine 25 mg tablet 25 mg PO BID #20 tabs 12/10/21 (Subvenite) Allergies Allergy/AdvReac Type Severity Reaction Status Date / Time penicillamine Allergy Mild Skin Rash Unverified 06/28/21 15:20 levetiracetam [From Keppra] AdvReac Severe Agitation Unverified 12/10/21 16:22 erythromycin base AdvReac Unverified 06/28/21 15:20 sulfamethoxazole AdvReac Unverified 06/28/21 15:20 [From Bactrim] trimethoprim [From Bactrim] AdvReac Unverified 06/28/21 15:20 General Stated Complaint: Seizure OLEKSANDR: 3 Review of Systems Constitutional Constitutional: Denies fatigue, Denies fever(s), Denies headache(s) and Denies weakness Eyes Eyes: Denies change in vision ENT Ears, Nose, Mouth, and Throat: Denies headache(s) and Denies neck pain Cardiovascular Cardiovascular: Denies chest pain and Denies dyspnea Respiratory Respiratory: Denies cough and Denies dyspnea Gastrointestinal Gastrointestinal: Denies abdominal pain, Denies nausea and Denies vomiting Musculoskeletal Musculoskeletal: Reports myalgias, Denies neck pain, Denies numbness, Denies stiffness and Denies tingling Integumentary/Breasts Skin/Breast: Denies rash Neurologic Neurologic: Denies headache(s), Denies numbness, Denies tingling and Denies weakness Endocrine Endocrine: Denies fatigue PFSH All Active Problems Seizure (Acute) Medical History ADHD Social History Smoking/Tobacco Use Status: Current every day Tobacco Type: cigarettes Smoking risk assessment performed?: Yes Alcohol Intake: current Alcohol Intake frequency: holidays/special occasions only Alcohol type: beer Drug use: Daily Substance use type: marijuana Do you feel safe at home: Yes Do you feel safe in your relationship?: Yes Exam Const General: cooperative, healthy appearing, comfortable and no acute distress Orientation: alert, awake and oriented x3 [facility] Head: normal to inspection, normocephalic and atraumatic Ears: hearing grossly normal bilaterally General nose exam: external nose normal Face and sinus: normal facial exam Mouth: oral mucosae normal, lip normal, tongue normal and moist mucous membranes Teeth and gingiva: dentition normal Throat: posterior oropharynx normal Eyes General: appearance normal, both eyes and all related structures Conjunctivae: conjunctivae normal Neck Neck: normal visual inspection, full ROM, no meningeal signs, trachea midline, supple and nontender Resp Effort & Inspection: normal respiratory effort and able to speak in complete sentences Auscultation: clear to auscultation bilaterally Cardio Rate: regular rate Rhythm: regular rhythm GI Palpation: soft, not firm, no guarding, no pulsatile masses and nontender Back/Spine/Pelvis Back: No back tenderness Skin General skin exam: no rashes or lesions noted Neuro General: patient alert, patient awake, patient oriented x3, moves all extremities and no focal motor deficits Cranial Nerves: CN's II-XI intact bilaterally Cognition: normal cognition Speech: speech normal Gait: normal gait Motor: muscle tone normal throughout, strength 5/5 throughout, no movement abnormalities noted and no fasciculations Sensory Exam: no sensory deficits noted Extrem General: normal to inspection, full ROM and capillary refill normal Psych Appearance: grossly normal Mental Status: mental status grossly normal Course Vital Signs Vital signs: Vital Signs Temperature 36.6 C 12/10/21 16:17 Pulse 68 12/10/21 16:17 Respiratory Rate 18 12/10/21 16:17 Blood Pressure 130/83 12/10/21 16:17 Pulse Oximetry 94 12/10/21 16:17 Temperature 36.6 C 12/10/21 16:17 Temperature Source Oral 12/10/21 16:17 Pulse 68 12/10/21 16:17 Respiratory Rate 18 12/10/21 16:17 Respiratory Effort 12/10/21 16:19 Respiratory Depth Normal 12/10/21 16:19 Respiratory Pattern Normal 12/10/21 16:19 Blood Pressure 130/83 12/10/21 16:17 Pulse Oximetry 94 12/10/21 16:17 Oxygen Delivery Method Room Air 12/10/21 16:17 Oxygen Flow Rate 0 12/10/21 16:17 Pain Level 0 12/10/21 16:17
--- NOTE | 2021-12-10 16:45 | RT.EKG_ITS ---
APPROVED REPORT Exam: Resting ECG Reason for Exam: seizure Patient Location: E HR:68 bpm ECG Measurements Heart Rate 68 AXIS MN 146 P 45 QRSd 103 QRS 36 QT 386 T 32 QTc 411 Conclusion Sinus rhythm...normal P axis, V-rate 60- 99 ST elev, probable normal early repol pattern...ST elevation, age<55 sinus rhythm, normal axis, normal intervals, early repol
[2021-12-10 17:02] LABS: Abs Immature Grans 0.03 10^3/uL (0.0-0.06); Absolute Basophil Count 0.02 10^3/uL (0.0-0.2); Absolute Eosinophil Count 0.05 10^3/uL (0.0-0.7); Absolute Neutrophil Count 6.68 10^3/uL (1.2-6.7); Basophils % 0.2; Eosinophils % 0.5; HCT 43.3 % (40.0-50.0); HGB 15.3 g/dL (13.5-17.5); Immature Grans % 0.3; Lymphocytes % 21.6; MCH 30.7 pg (27.0-33.0); MCHC 35.3 % (32.0-36.0); MCV 87 fL (80-95); MPV 9.6 fL (8.0-11.0); Monocytes % 5.4; Platelet Count 250 10^3/uL (130-400); RBC 4.98 10^6/uL (4.36-5.78); RDW 12.7 % (11.8-14.1); RDW-SD 40.4 fL; WBC 9.28 10^3/uL (4.4-10.8)
[2021-12-10 17:33] LABS: ALT 35 U/L (16-63); AST 21 U/L (15-37); Albumin 3.7 g/dL (3.4-5.0); Alkaline Phosphatase 48 U/L (46-116); Anion Gap 10.7 mmol/L (3-11); BUN 21 mg/dL (7-18); Bilirubin, Total 0.3 mg/dL (0.2-1.0); CO2 25.3 mmol/L (21.0-32.0); CREATININE 1.1 mg/dL (0.70-1.30); Calcium 8.7 mg/dL (8.5-10.1); Chloride 107 mmol/L (98-107); Glucose 116 mg/dL (74-106); Lipase 98 U/L (73-393); Magnesium 1.9 mg/dL (1.8-2.4); Potassium 3.8 mmol/L (3.5-5.1); Sodium 143 mmol/L (136-145); TSH (W/Ref FT4) 3.45 uIU/mL (0.36-3.74); Total Protein 6.5 g/dL (6.4-8.2)
[2021-12-10 17:46] LABS: VALPROIC ACID < 3 ug/mL
[2021-12-10] MEDS: Normal Saline 1,000 ML 1000 ML IV (17:50)
--- NOTE | 2021-12-10 18:12 | PDOC.ERCMPRO ---
- If Service Date Differs Date of service: 12/10/21 Time of Service: 18:12 Care Management Progress Note YSBIRT screen: Positive for nicotine and cannabis. We discussed risk factors from his perspective but Pt identifies as pre-contemplative and is not considering cutting down or quitting at this time. Resources were offerred and explained and his family member did take some information. Pt was encouraged to follow up with his doctor and Pt notes his doctor has advised him to cut down as well.
[2021-12-10] MEDS: lamoTRIgine 100 MG TAB PO (18:17)
[2021-12-10] MEDS: lamoTRIgine 25 MG TAB PO (18:17)
[2021-12-10 18:25] LABS: Bilirubin Negative (Negative); Blood Trace-intact (Negative); Clarity Clear (Clear); Glucose Negative (Negative); Ketones Negative (Negative); Leukocyte Esterase Negative (Negative); Nitrite Negative (Negative); Specific Gravity >= 1.030 (1.005-1.025); Urobilinogen 0.2 EU/dL (Up TO 0.2)
[2021-12-10 18:33] LABS: Epithelial Cells Negative HPF (Negative); Other Cells Few Yeast (Negative)
[2021-12-10 18:34] LABS: Bacteria Negative HPF (Negative); C & S Indicated? No; Crystals Negative HPF (Negative); Mucus Negative (Negative)
[2021-12-10 18:42] LABS: *AMPHETAMINES SCREEN URINE Negative (Negative); *BARBITURATES SCREEN URINE Negative (Negative); *BENZODIAZEPINES SCREEN URINE Negative (Negative); Cannabinoids THC Positive (Negative); Cocaine Screen,Urine Negative (Negative); METHADONE URINE SCREEN Negative (Negative); OPIATES URINE SCREEN Negative (Negative)
[2021-12-10 18:43] LABS: Tricyclic Antidepressants Negative (Negative)
[2021-12-12 16:27] LABS: Lamotrigine <0.2 mcg/mL (2.5 - 15.0)
== END 2021-12-10 18:27 | disposition home or self-care (01) ==
LOC: ER 18:23
PROVIDERS: Emergency Provider Physician Assistant; PCP Internal Medicine
DX: G40.909 Epilepsy, unspecified, not intractable, without status epilepticus (principal); F17.210 Nicotine dependence, cigarettes, uncomplicated
CPT/HCPCS: 80053; 80175; 80307; 83690; 93005; 96360; 99283; 80164; 81003; 81015; 83735; 84443; 85025; 93010; 99284

== ENCOUNTER 2022-07-07 14:10 | Outpatient (REF) | payer BC, SELFPAY ==
[2022-07-09 10:25] LABS: HIV-1/2 Ag & Ab Screen Negative (Negative)
[2022-07-09 10:36] LABS: Hepatitis C Ab w Rflx HCV PCR Negative (Negative)
[2022-07-09 11:01] LABS: Syphilis Serology (RPR) Negative (Negative)
[2022-07-09 14:56] LABS: GC Result Negative (Negative)
[2022-07-09 15:47] LABS: Chlamydia Result Positive (Negative)
== END 2022-07-07 14:11 | disposition home or self-care (01) ==
LOC: LBN 14:10
PROVIDERS: PCP Internal Medicine; Visit Provider Nurse Practitioner Family
DX: Z11.3 Encounter for screening for infections with a predominantly sexual mode of transmission (principal)
CPT/HCPCS: 86803; 87389; 87491; 87591; 86592

== ENCOUNTER 2023-06-04 08:13 | Emergency (ER) | payer BC, SELFPAY ==
[2023-06-04 08:16] VITALS: BP 156/103; PULSE 94; RESP 16; TEMP 36.6; O2SAT 98
--- NOTE | 2023-06-04 08:23 | W.ED.GENAD ---
HPI General Mode of arrival: ambulatory. Date/Time Provider Initiated Documentation: 06/04/23 08:17. Limitations to Documentation: no limitations. Information obtained by: patient, RN notes reviewed and old records reviewed. HPI Narrative: 28 year old male presents to the ED with cc of sore throat, fever x 3 days, T-max 101, MAYS, body aches. He also has a hx of Epilepsy which he takes Depakote and Lamotragine for, he denies missing any doses of medications. he states he may have had a seizure while sleeping last night because his abdomen and back were hurting when he woke up this am. Denies dysuria, N/V/D. On exam he does have erythemic posterior oropharynx, right tonsil is 2+ left tonsils 1+, no exudate uvula is midline. He does have some cervical lymphadenopathy. Denies any cough. Denies any sick contacts. He did take Tylenol around 530 this morning. Ibuprofen last night. He sees neurology at [facility] for his seizure disorder. Related Data Home Medications Medication Instructions Recorded Confirmed sertraline 50 mg tablet 50 mg PO DAILY AM 05/01/18 12/10/21 divalproex 250 mg tablet,extended 750 mg PO BID 10/29/19 12/10/21 release 24 hr (Depakote ER) lamotrigine 100 mg tablet 100 mg PO BID 10/29/19 12/10/21 lamotrigine 25 mg tablet 25 mg PO BID #20 tabs 12/10/21 (Subvenite) clindamycin HCl 150 mg capsule 450 mg (3 x 150 mg) PO TID 7 days 06/04/23 #63 caps Previous Rx's Medication Instructions Recorded lamotrigine 25 mg tablet 25 mg PO BID #20 tabs 12/10/21 (Subvenite) clindamycin HCl 150 mg capsule 450 mg (3 x 150 mg) PO TID 7 days 06/04/23 #63 caps Allergies Allergy/AdvReac Type Severity Reaction Status Date / Time penicillamine Allergy Mild Skin Rash Unverified 06/28/21 15:20 levetiracetam [From [facility]] AdvReac Severe Agitation Unverified 12/10/21 16:22 erythromycin base AdvReac Unverified 06/28/21 15:20 sulfamethoxazole AdvReac Unverified 06/28/21 15:20 [From Bactrim] trimethoprim [From Bactrim] AdvReac Unverified 06/28/21 15:20 General Stated Complaint: Fever OLEKSANDR: 3 Course Vital Signs Vital signs: Vital Signs Temperature 36.6 C 06/04/23 08:16 Pulse 94 H 06/04/23 08:16 Respiratory Rate 16 06/04/23 08:16 Blood Pressure 156/103 H 06/04/23 08:16 Pulse Oximetry 98 06/04/23 08:16 Temperature 36.6 C 06/04/23 08:16 Pulse 94 H 06/04/23 08:16 Respiratory Rate 16 06/04/23 08:16 Blood Pressure 156/103 H 06/04/23 08:16 Blood Pressure Position Sitting 06/04/23 08:16 Pulse Oximetry 98 06/04/23 08:16 Oxygen Delivery Method Room Air 06/04/23 08:16 Oxygen Flow Rate 0 06/04/23 08:16 Pain Level 6 06/04/23 08:16 Medical Decision Making 28 year old male presents to the ED with cc of sore throat, fever x 3 days, T-max 101, MAYS, body aches. He also has a hx of Epilepsy which he takes Depakote and Lamotragine for, he denies missing any doses of medications. he states he may have had a seizure while sleeping last night because his abdomen and back were hurting when he woke up this am. Denies dysuria, N/V/D. On exam he does have erythemic posterior oropharynx, right tonsil is 2+ left tonsils 1+, no exudate uvula is midline. He does have some cervical lymphadenopathy. Denies any cough. Denies any sick contacts. He did take Tylenol around 530 this morning. Ibuprofen last night. He sees neurology at [facility] for his seizure disorder. Strep swab ordered by triage nurses, rapid flu COVID swab ordered. 10 mg dexamethasone p.o. ordered. Differential diagnosis includes but not limited to pharyngitis, viral illness, COVID, flu, UTI. Urinalysis shows 80 ketones small bilirubin negative leukocytes negative nitrites. Culture is not indicated at this time. Rapid flu COVID negative, strep swab negative. Quality:SDOH Health Related Social Needs: No Data to Display PFSH All Active Problems (Updated 06/04/23 @ 09:30 by Germaine Serrano NP) Pharyngitis (Acute) Medical History (Updated 06/04/23 @ 09:30 by Germaine Serrano NP) ADHD Social History Smoking/Tobacco Use Status: Current every day Tobacco Type: cigarettes Smoking risk assessment performed?: Yes Alcohol Intake: current Alcohol Intake frequency: holidays/special occasions only Alcohol type: beer Drug use: Daily Substance use type: marijuana Do you feel safe at home: Yes Do you feel safe in your relationship?: Yes Discharge Plan Disposition Patient Disposition: Home Condition: Stable Discharge Details Clinical Impression: Pharyngitis Primary Care Provider: Ajit Barone ED Provider: Germaine Serrano Home Meds and New Rx's Prescriptions: New clindamycin HCl 150 mg capsule 450 mg PO TID 7 Days Qty: 63 0RF Continued sertraline 50 mg Tablet 50 mg PO DAILY AM lamotrigine [Subvenite] 25 mg tablet 25 mg PO BID Qty: 20 0RF lamotrigine 100 mg Tablet 100 mg PO BID divalproex [Depakote ER] 250 mg Tablet Extended Release 24 Hr 750 mg PO BID Discharge Instructions Instructions: Pharyngitis (ED) Additional Instructions: Gargle with warm salt water three times a day. Today your flu, covid, strep swabs were negative. However your tonsils are red and swollen. This couldbe viral, but I will give you an antibiotic. Please take Tylenol with food every 4-6 hours as needed for pain and swelling. You also appear to be slightly dehydrated. Follow up with primary care provider in 3-5 days. Return to ED sooner if any worsening or concerns. Increase oral fluids. Stand Alone Forms: Work Release Referrals: Ajit Barone MD [Primary Care Provider] - 5 days
[2023-06-04] MEDS: Dexamethasone 10 MG/ML VIAL PO (08:38)
[2023-06-04 09:06] LABS: Bilirubin Small (Negative); Blood Negative (Negative); Clarity Clear (Clear); Glucose Negative (Negative); Ketones 80 mg/dL (Negative); Leukocyte Esterase Negative (Negative); Nitrite Negative (Negative); Specific Gravity 1.025 (1.005-1.025); pH 6.5 (5-8)
[2023-06-04] MEDS: Clindamycin 150 MG CAP 450 MG PO (09:43)
[2023-06-04 09:44] VITALS: BP 131/76; PULSE 88; RESP 14; O2SAT 99
== END 2023-06-04 09:48 | disposition home or self-care (01) ==
PROVIDERS: Emergency Provider Registered Nurse Emergency; PCP Internal Medicine
DX: J02.9 Acute pharyngitis, unspecified (principal); R50.9 Fever, unspecified
CPT/HCPCS: 87880; 99283; 81003; 87081; J1100

== ENCOUNTER 2023-06-07 15:42 | Outpatient (REF) | payer BC, SELFPAY ==
[2023-06-08 14:59] LABS: Chlamydia Result Negative (Negative); GC Result Negative (Negative)
== END 2023-06-07 15:43 | disposition home or self-care (01) ==
LOC: LBN 15:42
PROVIDERS: PCP Internal Medicine; Visit Provider Nurse Practitioner Family
DX: Z11.3 Encounter for screening for infections with a predominantly sexual mode of transmission (principal)
CPT/HCPCS: 87491; 87591

== ENCOUNTER 2023-09-13 12:47 | Emergency (ER) | payer BC, SELFPAY ==
--- NOTE | 2023-09-13 12:32 | NUR.NOTE ---
Nursing Note: Pt arrives via EMS, was postictal on scene but now A&O x 3- pt doesnt remember having a seizure, states he has epilepsy and doesn't need to be seen I already know I have seizures. Denies any recent med changes, denies trauma or recent illness. Parents now at bedside and are going to drive patient home to rest. Instructed to return if anything worsens or would like to be seen. Parents and pt all verbalize understanding.
[2023-09-13 12:34] VITALS: BP 149/89; RESP 18; O2SAT 97
--- NOTE | 2023-09-13 14:55 | ED.GENADUL_ITS ---
Discharge Plan Disposition Patient Disposition: Home Condition: Stable Discharge Details Clinical Impression: Seizure Primary Care Provider: Rcihi Nicole ED Provider: Shahida Mares Home Meds and New Rx's Prescriptions: No Action sertraline 50 mg Tablet 50 mg PO DAILY AM lamotrigine 100 mg Tablet 100 mg PO BID divalproex [Depakote ER] 250 mg Tablet Extended Release 24 Hr 750 mg PO BID Discharge Instructions Instructions: Recurrent Seizures in Adults (ED) Additional Instructions: continue your medications and follow up with neurology as scheduled HPI General Date/Time Provider Initiated Documentation: 09/13/23 14:56 . Limitations to Documentation: no limitations . Information obtained by: patient, family and EMS . HPI Narrative: 28-year-old gentleman with past medical history of epilepsy presents by EMS for evaluation of his seizure. Patient was observed to have a seizure at work today by coworkers. They contacted EMS and his parents. EMS reports on their arrival, the patient seemed slightly postictal, but was otherwise alert and oriented. There were no signs of trauma from the seizure. The patient reports that he has been compliant with his medications, he reports that he feels like he usually does after having a seizure and he does not really want to be evaluated. Parents are at bedside. Related Data Home Medications Medication Instructions Recorded Confirmed sertraline 50 mg tablet 50 mg PO DAILY AM 05/01/18 06/04/23 divalproex 250 mg tablet,extended 750 mg PO BID 10/29/19 06/04/23 release 24 hr (Depakote ER) lamotrigine 100 mg tablet 100 mg PO BID 10/29/19 06/04/23 Allergies Allergy/AdvReac Type Severity Reaction Status Date / Time penicillamine Allergy Mild Skin Rash Unverified 06/04/23 09:46 levetiracetam [From Keppra] AdvReac Severe Other (See Unverified 09/13/23 12:49 Comment) erythromycin base AdvReac Other (See Unverified 09/13/23 12:49 Comment) sulfamethoxazole AdvReac Other (See Unverified 09/13/23 12:49 [From Bactrim] Comment) trimethoprim [From Bactrim] AdvReac Other (See Unverified 09/13/23 12:49 Comment) General Stated Complaint: Seizure OLEKSANDR: 3 Exam Narrative Exam Narrative: Review of Systems: All systems reviewed & are unremarkable except as noted in HPI and below Well-developed, no acute distress NCAT PERRL, normal conjunctiva RRR, no murmur Unlabored respiratory effort, CTAB Nondistended abdomen Extremities w/o deformity, no cyanosis, no edema No rashes or lesions. no focal neurologic deficits Appropriate mood and affect Course Vital Signs Vital signs: Vital Signs Respiratory Rate 18 09/13/23 12:34 Blood Pressure 149/89 H 09/13/23 12:34 Pulse Oximetry 97 09/13/23 12:34 Respiratory Rate 18 09/13/23 12:34 Respiratory Effort Normal, Non-Labored 09/13/23 12:52 Respiratory Depth Normal 09/13/23 12:52 Respiratory Pattern Normal 09/13/23 12:52 Blood Pressure 149/89 H 09/13/23 12:34 Blood Pressure Position Sitting 09/13/23 12:34 Pulse Oximetry 97 09/13/23 12:34 Oxygen Delivery Method Room Air 09/13/23 12:34 Oxygen Flow Rate 0 09/13/23 12:34 Pain Level 6 09/13/23 12:34 Medical Decision Making Emergent evaluation of seizure. Patient has a known seizure disorder. At this time he has returned to baseline. His parents are here. The patient reports that his last seizure was probably about 6 months ago. He is followed by neurology at [facility]. The he reports compliance with his medication. At this time he states that he does have a headache which is consistent with his prior episodes of seizure. He has no evidence of trauma. At this time he declines any further workup. He has the capacity to make this decision. 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 Patient is safe for discharge. Medical Records Medical records reviewed: Yes I reviewed the patient's medical records. Lab Data Lab results reviewed: Yes I reviewed the patient's lab results. Quality:SDOH Health Related Social Needs: No Data to Display PFSH All Active Problems Seizure (Acute) Medical History ADHD Social History Smoking/Tobacco Use Status: Current every day Tobacco Type: cigarettes Smoking risk assessment performed?: Yes Alcohol Intake: current Alcohol Intake frequency: holidays/special occasions only Alcohol type: beer Drug use: Daily Substance use type: marijuana Do you feel safe at home: Yes Do you feel safe in your relationship?: Yes
== END 2023-09-13 14:56 | disposition home or self-care (01) ==
LOC: ER 12:50
PROVIDERS: Emergency Provider Emergency Medicine; PCP Family Medicine
DX: G40.909 Epilepsy, unspecified, not intractable, without status epilepticus (principal); F17.210 Nicotine dependence, cigarettes, uncomplicated
CPT/HCPCS: 99283

== ENCOUNTER 2024-05-08 06:43 | Emergency (ER) | payer BC, SELFPAY ==
[2024-05-08 06:48] VITALS: BP 162/92; PULSE 83; RESP 16; TEMP 36.5; O2SAT 99
--- NOTE | 2024-05-08 07:29 | ED.GENADUL_ITS ---
Discharge Plan Disposition Patient Disposition: Home Condition: Good Discharge Details Clinical Impression: Back pain Primary Care Provider: Richi Nicole ED Provider: Eyal Pederson Home Meds and New Rx's Prescriptions: New prednisone 50 mg tablet 50 mg PO DAILY Qty: 5 0RF lidocaine [Lidoderm] 5 % adhesive patch,medicated 1 patch Topical Q24H Qty: 15 0RF No Action sertraline 50 mg Tablet 50 mg PO DAILY AM lamotrigine 100 mg Tablet 100 mg PO BID divalproex [Depakote ER] 250 mg Tablet Extended Release 24 Hr 750 mg PO BID Discharge Instructions Instructions: Low Back Pain ED Additional Instructions: At this time your signs and symptoms are clinically consistent with a back sprain. This can cause significant pain and take a fair bit of time to heal. I expect 1 to 2 months for potential resolution. In the meantime do not lift anything greater than 5 pounds for the next 2 weeks. Avoid any significant vigorous physical activity. Perform easy gentle regular activities at home without any significant bending or lifting. Please take the steroids as directed. You have been given a prescription for Lidoderm patch. If your insurance does not cover this you can get [id number] Lidoderm patches at 4% which are almost just as effective. Please take the Valium only as needed for severe spasm but do not take it when driving or operating any vehicles or heavy machinery, swimming, taking long baths, or operating firearms. Please use a heating pad as often as possible on your back. Perform daily gentle stretches on your back. Please continue to take the Tylenol and Motrin. You can take 1000 mg of Tylenol every 6 hours and 600 mg of ibuprofen every 6 hours. If you notice any worsening of your symptoms, or any new symptoms such as vomiting, diarrhea, fever, chills, shortness of breath, chest pain, numbness or tingling in your groin or legs, weakness in your legs, loss of control for your bowels or bladder, or fainting , please return immediately to the emergency department for reevaluation. Please follow up with your primary care provider as soon as possible for reassessment and reevaluation. As always, it was a pleasure participating in your medical care today. Stand Alone Forms: Work Release Referrals: Richi Nicole MD [Primary Care Provider] - Discharge Data Discharge Date/Time-TO BE ENTERED AT DEPARTURE: 01/06/25 07:52 HPI General Date/Time Provider Initiated Documentation: 05/08/24 07:03 . HPI Narrative: This is a 29-year-old male with a past medical history of seizures on Depakote, lamotrigine, and also on sertraline. He presents today for evaluation of back pain. Patient states that he awoke this morning with spasm and pain in his right lower back. Often times he gets back spasms after he has a seizure in his sleep, however he denies any of the red flag indicators that would represent a seizure in his sleep. He had no tongue biting, micturition, or sweating which she states is usually what happens. He denies any recent heavy lifting, but has done some increased activities requiring lifting over the last few days. Patient denies any saddle anesthesia, numbness or tingling in the groin, change in sensation when wiping. Patient denies any change in sensation during sexual intercourse, difficulty achieving or maintaining an erection or ejaculation, bowel or bladder incontinence, leakage, or retention. Patient denies any weakness in the lower extremities, atypical falls or imbalance. Patient has not taken any NSAIDs today. No other complaints at this time. Related Data Home Medications ?Medication ?Instructions ?Recorded ?Confirmed sertraline 50 mg tablet 50 mg PO DAILY AM 05/01/18 05/08/24 divalproex 250 mg tablet,extended 750 mg PO BID 10/29/19 05/08/24 release 24 hr (Depakote ER) lamotrigine 100 mg tablet 100 mg PO BID 10/29/19 05/08/24 lidocaine 5 % topical patch 1 patch topical Q24H #15 ea 05/08/24 (Lidoderm) prednisone 50 mg tablet 50 mg PO DAILY #5 tabs 05/08/24 Previous Rx's ?Medication ?Instructions ?Recorded lidocaine 5 % topical patch 1 patch topical Q24H #15 ea 05/08/24 (Lidoderm) prednisone 50 mg tablet 50 mg PO DAILY #5 tabs 05/08/24 Allergies Allergy/AdvReac Type Severity Reaction Status Date / Time penicillamine Allergy Mild Skin Rash Unverified 05/08/24 06:48 levetiracetam (From [facility]) AdvReac Severe Other (See Unverified 05/08/24 06:48 Comment) erythromycin base AdvReac Other (See Unverified 05/08/24 06:48 Comment) sulfamethoxazole (From AdvReac Other (See Unverified 05/08/24 06:48 Bactrim) Comment) trimethoprim (From Bactrim) AdvReac Other (See Unverified 05/08/24 06:48 Comment) General Stated Complaint: Nk/Back Pain OLEKSANDR: 4 Exam Narrative Exam Narrative: 1.Const: Well-nourished, Well-developed, appearing stated age 2.Eyes: PERRL, no conjunctival injection, and symmetrical lids. 3.ENT: Atraumatic external nose and ears. Moist MM. Neck: Symmetric, trachea midline, No thyromegaly. 4.CVS: +S1/S2, Peripheral pulses 2+ and equal in all extremities. Brisk capillary refill in all extremities. 5.RESP: Unlabored respiratory effort. Clear to auscultation bilaterally. No wheezes rales or rhonchi 6.GI: Soft, Nontender/Nondistended, No hepatosplenomegaly. No guarding or rebound. 7.MSK: Normocephalic/Atraumatic, Extremities w/o deformity or ttp No cyanosis or clubbing, Normal movement of all extremities No midline tenderness to palpation over the CTLS spine. Patient has mild to moderate right-sided paraspinal spasm extending from the mid lumbar vertebra down to the right SI joint. Normal ROM in flexion, extension, side bend, and rotation. Patient has +5 out of 5 strength in the lower extremities in dorsiflexion and plantarflexion, knee flexion and extension, hip flexion and extension. Normal strength for dorsiflexion and plantar flexion of the great toe bilaterally. There is +2 over 2 dorsalis pedis pulses bilaterally. There is normal sensation to the skin with light touch at the foot, knee, and hip. Normal saddle sensation. Good sensation over the deep sural nerve area bilaterally. Rectal exam demonstrates good rectal tone with excellent eileen-rectal sensation. Reflexes are +2 over 4 in the patellar reflex bilaterally. +5 out of 5 strength in the medial, ulnar, radial nerve distribution bilaterally in the hands as well as intact light touch sensation to these dermatomes on the hands 8.Skin: Warm, Dry. No rashes or lesions. 9.Neuro: manager maintenance II-XII grossly intact. Sensation grossly intact, no focal neurologic deficits. 10.Psych: (AAO) x3. Appropriate mood and affect Course Vital Signs Vital signs: Vital Signs Temperature 36.5 C 05/08/24 06:48 Pulse 83 05/08/24 06:48 Respiratory Rate 16 05/08/24 06:48 Blood Pressure 162/92 H 05/08/24 06:48 Pulse Oximetry 99 05/08/24 06:48 Temperature 36.5 C 05/08/24 06:48 Temperature Source Temporal Artery Scan 05/08/24 06:48 Pulse 83 05/08/24 06:48 Respiratory Rate 16 05/08/24 06:48 Blood Pressure 162/92 H 05/08/24 06:48 Blood Pressure Position Sitting 05/08/24 06:48 Pulse Oximetry 99 05/08/24 06:48 Oxygen Delivery Method Room Air 05/08/24 06:48 Oxygen Flow Rate 0 05/08/24 06:48 Pain Level 8 05/08/24 07:01 Comment told to stay away from Ibuprofen 05/08/24 06:48 Medical Decision Making This is a 29-year-old male with a past medical history of seizures on Depakote, lamotrigine, and also on sertraline. He presents today for evaluation of back pain. Patient states that he awoke this morning with spasm and pain in his right lower back. Often times he gets back spasms after he has a seizure in his sleep, however he denies any of the red flag indicators that would represent a seizure in his sleep. He had no tongue biting, micturition, or sweating which she states is usually what happens. He denies any recent heavy lifting, but has done some increased activities requiring lifting over the last few days. Patient denies any saddle anesthesia, numbness or tingling in the groin, change in sensation when wiping. Patient denies any change in sensation during sexual intercourse, difficulty achieving or maintaining an erection or ejaculation, bowel or bladder incontinence, leakage, or retention. Patient denies any weakness in the lower extremities, atypical falls or imbalance. Patient has not taken any NSAIDs today. No other complaints at this time. Exam demonstrates a well-appearing male, mild right-sided paravertebral spasm, no midline tenderness. No red flags indicating emergent imaging. Symptoms do not demonstrate evidence to suggest cauda equina syndrome. No IV drug use or recent trauma or falls. Normal neurovascular exam. Symptoms appear consistent with mild muscle spasm. Did discuss imaging options and the patient would like to hold off at this time. No urinary discomfort to suggest UTI or Shayan. No abdominal tenderness to suggest diverticulitis. With symptoms appearing clinically consistent with muscle spasm, we will recommend steroids, Lidoderm patches, and NSAID therapy. We will avoid standard muscle relaxants secondary to their concern for interaction with his seizure medications. We will give 2 tablets of Valium for home use. Patient drove himself. Recommend using these for breakthrough spasms only as needed. Recommend continued heating pad and close follow-up. Discussed with the patient that if his symptoms do not improve with conservative medical therapy he may require further imaging. He understands this. Discussed red flags which to return. I have extensively reviewed the treatment plan and discharge instructions with the patient. I have addressed all patient concerns at this time. The patient was made aware of what symptoms to monitor for that would warrant a return to the emergency department. Discussed the plan with the patient, they demonstrate verbal understanding and agreement with our assessment and plan at this time. The documentation in this chart was dictated using Quickoffice dictation software. Please excuse any dictation errors. Quality:SDOH Health Related Social Needs: No Data to Display PFSH All Active Problems (Updated 05/08/24 @ 07:29 by Eyal Pederson DO) Back pain (Acute) Medical History (Updated 05/08/24 @ 07:29 by Eyal Pederson DO) ADHD Social History Smoking/Tobacco Use Status: Current every day Tobacco Type: cigarettes Smoking risk assessment performed?: Yes Alcohol Intake: current Alcohol Intake frequency: holidays/special occasions only Alcohol type: beer Drug use: Daily Substance use type: marijuana Housing: apartment Do you feel safe at home: Yes Do you feel safe in your relationship?: Yes
[2024-05-08] MEDS: Acetaminophen 500 MG TAB 1000 MG PO (07:41)
[2024-05-08] MEDS: predniSONE 20 MG TAB 60 MG PO (07:42)
[2024-05-08] MEDS: Ketorolac 30 MG/ML VIAL IM (07:43)
[2024-05-08] MEDS: diazePAM 5 MG TAB 10 MG PO (07:50)
[2024-05-08] MEDS: Lidocaine 5% Patch 1 PATCH TP (07:50)
== END 2024-05-08 07:52 | disposition home or self-care (01) ==
PROVIDERS: Emergency Provider Student in an Organized Health Care Education/Training Program; PCP Family Medicine
DX: M54.50 Low back pain, unspecified (principal)
CPT/HCPCS: 96372; 99284; 99283; J1885; J7512

== ENCOUNTER 2024-06-26 09:28 | Emergency (ER) | payer BC, SELFPAY ==
[2024-06-26] VITALS (11 sets, daily range): BP systolic 122–134; BP diastolic 79; PULSE 68–83; RESP 9–23; O2SAT 95–99
--- NOTE | 2024-06-26 09:42 | ED.GENADUL_ITS ---
Discharge Plan Disposition Patient Disposition: Home Condition: Fair Discharge Details Clinical Impression: Hx of medication noncompliance, Recurrent seizures Primary Care Provider: Richi Nicole ED Provider: Shahida Mares Home Meds and New Rx's Prescriptions: New lamotrigine 25 mg tablet 25 mg PO BID Qty: 60 0RF Continued divalproex [Depakote ER] 250 mg Tablet Extended Release 24 Hr 750 mg PO BID Qty: 60 0RF Discontinued lamotrigine 100 mg Tablet 100 mg PO BID No Action sertraline 50 mg Tablet 100 mg PO DAILY AM prednisone 50 mg tablet 50 mg PO DAILY Qty: 5 0RF lidocaine [Lidoderm] 5 % adhesive patch,medicated 1 patch Topical Q24H Qty: 15 0RF cyclobenzaprine 10 mg tablet 10 mg PO TID PRN Patient Comments: TAKE ONE TABLET BY MOUTH THREE TIMES A DAY NEEDED ketorolac 10 mg tablet 10 mg PO Q6H PRN Patient Comments: TAKE ONE TABLET BY MOUTH EVERY 6 HOURS NEEDED propranolol 20 mg tablet 20 mg PO DAILY PRN Discharge Instructions Additional Instructions: You have not been taking your seizure medications and therefore you will continue to have seizures. Do not drive, do not operate heavy machinery, do not swim or bathe unattended. The care managers will reach out to you regarding your issues with medications and help you with the costs to improve your compliance. New prescriptions have been sent to the pharmacy. Do not resume your lamotrigine dosing of 100 mg twice daily, you need to start at a lower dose since you have not been taking the medicine for so long. Discharge Data Discharge Date/Time-TO BE ENTERED AT DEPARTURE: 06/26/24 14:43 HPI General Date/Time Provider Initiated Documentation: 06/26/24 09:40 . Limitations to Documentation: altered mental status . Information obtained by: family, EMS and old records reviewed . HPI Narrative: 29-year-old gentleman with past medical history of seizure disorder presents via EMS for seizure. 911 was called by the patient's mother who observed him sleeping he was seizing in his sleep. 10 mg of IM Versed was given by EMS. The patient has remained in a postictal state per EMS and mom. Related Data Home Medications ?Medication ?Instructions ?Recorded ?Confirmed sertraline 50 mg tablet 100 mg PO DAILY AM 05/01/18 06/26/24 lidocaine 5 % topical patch 1 patch topical Q24H #15 ea 05/08/24 06/26/24 (Lidoderm) prednisone 50 mg tablet 50 mg PO DAILY #5 tabs 05/08/24 06/26/24 cyclobenzaprine 10 mg tablet 10 mg PO TID PRN 06/26/24 06/26/24 divalproex 250 mg tablet,extended 750 mg (3 x 250 mg) PO BID #60 tabs 06/26/24 release 24 hr (Depakote ER) ketorolac 10 mg tablet 10 mg PO Q6H PRN 06/26/24 06/26/24 lamotrigine 25 mg tablet 25 mg PO BID #60 tabs 06/26/24 propranolol 20 mg tablet 20 mg PO DAILY PRN 06/26/24 06/26/24 Previous Rx's ?Medication ?Instructions ?Recorded lidocaine 5 % topical patch 1 patch topical Q24H #15 ea 05/08/24 (Lidoderm) prednisone 50 mg tablet 50 mg PO DAILY #5 tabs 05/08/24 divalproex 250 mg tablet,extended 750 mg (3 x 250 mg) PO BID #60 tabs 06/26/24 release 24 hr (Depakote ER) lamotrigine 25 mg tablet 25 mg PO BID #60 tabs 06/26/24 Allergies Allergy/AdvReac Type Severity Reaction Status Date / Time penicillamine Allergy Mild Skin Rash Unverified 06/26/24 13:18 levetiracetam (From Keppra) AdvReac Severe Other (See Unverified 06/26/24 13:18 Comment) erythromycin base AdvReac Other (See Unverified 06/26/24 13:18 Comment) sulfamethoxazole (From AdvReac Other (See Unverified 06/26/24 13:18 Bactrim) Comment) trimethoprim (From Bactrim) AdvReac Other (See Unverified 06/26/24 13:18 Comment) General Stated Complaint: Seizure OLEKSANDR: 3 Exam Narrative Exam Narrative: Review of Systems: All systems reviewed & are unremarkable except as noted in HPI and below Sleeping, arouses to stimulation, but fairly confused and combative NCAT Pupils midrange and reactive PERRL, normal conjunctiva RRR Unlabored respiratory effort clear bilaterally Extremities w/o deformity, no evidence of trauma Limited neuroexam Course Vital Signs Vital signs: Vital Signs Pulse 83 06/26/24 09:30 Respiratory Rate 16 06/26/24 09:30 Pulse Oximetry 99 06/26/24 09:30 Pulse 83 06/26/24 09:32 Respiratory Rate 9 L 06/26/24 09:39 Blood Pressure Position Supine 06/26/24 09:30 Pulse Oximetry 95 06/26/24 09:39 Respiratory End-tidal CO2 38 06/26/24 09:39 Oxygen Delivery Method Room Air 06/26/24 09:39 Oxygen Flow Rate 0 06/26/24 09:39 Medical Decision Making Emergent evaluation of seizure. Patient has known seizure disorder and is on medication. He was given IM Versed by EMS. Examination seems consistent with a postictal period. He has no sign of trauma. Parents are on their way patient was placed on end-tidal CO2 monitor with cardiac monitoring and will continue to observe closely for recurrent seizure. Mom and grandmother arrived and provided additional information. They report that the patient has actually had 3 seizures today. The first 1 was tonic- clonic witnessed by his 7-year-old son. He did wake up after that went and called mom, but his conversation with mom was not baseline. His grandmother came over to the house and he had a second tonic-clonic seizure at that time she contacted EMS. He had a third tonic-clonic seizure with EMS when they arrived to the house. At that time 10 mg of IM diazepam were given. The patient is slowly more communicative and following instructions. His behavior is still very agitated and irritable. He keeps asking what he is doing here and why he is here. Given that he has had multiple seizures today and not completely returned to baseline, we will begin investigations with lab work. I will also give IV load of valproic acid at 25 mg/kg with concern for possible status epilepticus and prolonged postictal state. Mom reports that he was complaining of severe headache which was atypical for him so I will send for head CT. While in the emergency department, the patient's lab work demonstrated a significant leukocytosis of 23 with left shift. This is likely stress response secondary to multiple seizures today as there is no obvious source of infectious etiology. Electrolytes are not deranged. His glucose was low at 48 and IV dextrose was given. His CPK was not elevated to be concerning for rhabdo. I did send drug levels and was concern for a valproic acid level that was not detectable. I performed a teleneurology consult with Dr. Johnston. He had access to [facility] neurology records and the patient's prior clinic visits. Over this time, the patient has always endorsed compliance with medication. However he was able to see that the last time the labs were checked, the patient had a low level. I contacted the local pharmacy to review medications and when prescriptions were filled. Patient picked up some back pain prescriptions in May, but did not pickle maker any AEDs since at least October 2023. At that time he had medications ready to be picked up but they never were. I personally patient with this information and he stated that he does not take his medicine is because the medication is too expensive. Patient was still fairly rude during this conversation which insists is not his baseline, but others in the room, his girlfriend and his grandmother indicate that this is typical behavior for him. The patient reports that he does not take his medication and it is because it is very expensive for him. At this time he is requesting to go home. He has no focal neurologic deficit, he is not being very nice but he does seem to again not have any neurologic deficit that would require him to be admitted and he is able to verbalize risks and benefits of going home. Based on my conversation with neurology, if there is no longer persistent altered mental status it seems he stable for discharge. I will reach out to care management to follow-up with him regarding medication costs. I have updated [facility] neurology regarding his medication noncompliance. Quality:SDOH Health Related Social Needs: Health related social needs education (Z55.6) Critical Care Time Critical Care Time Critical Care Time: Yes Total Critical Care Time: 37 Attestation: CRITICAL CARE Upon my evaluation, this patient had a high probability of imminent or life- threatening deterioration due to seizures, prolonged postictal period which required my direct attention, intervention, and personal management. I have personally provided 37 minutes of critical care time exclusive of time spent on separately billable procedures. Time includes review of laboratory data, radiology results, discussion with consultants, and monitoring for potential decompensation. Interventions were performed as documented above [facility] All Active Problems (Updated 06/26/24 @ 15:46 by Shahida Mares MD) Recurrent seizures (Acute) Hx of medication noncompliance (Acute) Medical History (Updated 06/26/24 @ 15:46 by Shahida Mares MD) ADHD Social History Smoking/Tobacco Use Status: Current every day Tobacco Type: e-cigarettes Smoking risk assessment performed?: Yes Alcohol Intake: current Alcohol Intake frequency: holidays/special occasions only Alcohol type: beer Drug use: Daily Substance use type: marijuana Housing: house Do you feel safe at home: Yes Do you feel safe in your relationship?: Yes
[2024-06-26] MEDS: diazePAM 10 MG/2 ML SYR IM (10:14)
[2024-06-26 10:37] LABS: Abs Immature Grans 0.24 10^3/uL (0.0-0.06); Absolute Basophil Count 0.07 10^3/uL (0.0-0.2); Absolute Monocyte Count 1.32 10^3/uL (0.1-0.8); Basophils % 0.3 %; HCT 51.5 % (40.0-50.0); HGB 17.4 g/dL (13.5-17.5); Lymphocytes % 3.5 %; MCHC 33.8 % (32.0-36.0); MCV 89 fL (80-95); MPV 9.5 fL (8.0-11.0); Monocytes % 5.7 %; Neutrophils % 89.5 %; Platelet Count 266 10^3/uL (130-400); RDW 12.3 % (11.8-14.1); RDW-SD 40.7 fL; WBC 23.14 10^3/uL (4.4-10.8)
[2024-06-26] MEDS: ACETAMINOPHEN 1,000 MG/100 ML BAG 400 MG IVPB (10:37)
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
[2024-06-26 10:49] LABS: Absolute Lymphocyte Count 0.81 10^3/uL (1.2-3.4); Absolute Neutrophil Count 20.71 10^3/uL (1.2-6.7)
[2024-06-26 10:54] LABS: BUN 14 mg/dL (7-18); Calcium 9.3 mg/dL (8.5-10.1); Chloride 107 mmol/L (98-107); Creatine Kinase 325 U/L (39-308); Estimated GFR 103.84 (mL/min/1.73m2); Potassium 4.4 mmol/L (3.5-5.1); Sodium 144 mmol/L (136-145)
[2024-06-26] MEDS: Ondansetron 4 MG/2 ML VIAL IVP (10:54)
[2024-06-26 10:55] LABS: Diff Comment Diff Reviewed; Glucose 48 mg/dL (74-106); RBC Morphology Normal
[2024-06-26] MEDS: Dextrose 50%-Water 25 GM/50 ML SYR IVP (11:00)
[2024-06-26 11:08] LABS: VALPROIC ACID < 3 ug/mL
[2024-06-28 13:19] LABS: Lamotrigine <0.2 mcg/mL (3.0-15.0)
== END 2024-06-26 14:43 | disposition home or self-care (01) ==
LOC: ER 12:06
PROVIDERS: Emergency Provider Emergency Medicine; PCP Family Medicine
DX: G40.909 Epilepsy, unspecified, not intractable, without status epilepticus (principal); Z91.141 Patient's other noncompliance with medication regimen due to financial hardship
CPT/HCPCS: 36416; 80048; 80175; 82550; 82962; 96365; 96367; 96372; 96375; 99291; 70450; 80164; 83735; 85025; J0131; J2405; J3360

== ENCOUNTER 2024-12-01 22:45 | Emergency (ER) | payer BC, SELFPAY ==
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
[2024-12-01 22:48] VITALS: BP 118/65; PULSE 86; RESP 20; TEMP 36.9; O2SAT 98
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
[2024-12-01] MEDS: MORPHine 10 MG/ML VIAL 2 MG IVP (23:02)
[2024-12-01 23:06] LABS: Abs Immature Grans 0.07 10^3/uL (0.0-0.06); HCT 50.5 % (40.0-50.0); HGB 17.1 g/dL (13.5-17.5); Immature Grans % 0.4 %; MCH 29.5 pg (27.0-33.0); MCHC 33.9 % (32.0-36.0); MCV 87 fL (80-95); MPV 9.5 fL (8.0-11.0); Platelet Count 309 10^3/uL (130-400); RBC 5.80 10^6/uL (4.36-5.78); RDW 12.4 % (11.8-14.1); RDW-SD 39.7 fL; WBC 16.62 10^3/uL (4.4-10.8)
[2024-12-01] MEDS: ACETAMINOPHEN 1,000 MG/100 ML BTL 400 MG IVPB (23:11)
[2024-12-01 23:18] LABS: ALT 33 U/L (16-63); AST 18 U/L (15-37); Albumin 5.2 g/dL (3.4-5.0); Alkaline Phosphatase 58 U/L (46-116); Anion Gap 11.1 mmol/L (3-11); BUN 18 mg/dL (7-18); Bilirubin, Total 0.5 mg/dL (0.2-1.0); CO2 28.9 mmol/L (21.0-32.0); Calcium 9.4 mg/dL (8.5-10.1); Chloride 98 mmol/L (98-107); Estimated GFR 103.84 (mL/min/1.73m2); Glucose 126 mg/dL (74-106); Potassium 3.8 mmol/L (3.5-5.1); Sodium 138 mmol/L (136-145); Total Protein 8.7 g/dL (6.4-8.2)
[2024-12-01] MEDS: Diph,Pertuss(Acell),Tet Vac/Pf 0.5 ML SYR IM (23:19)
[2024-12-01] MEDS: MORPHine 4 MG/ML SYR (23:22)
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
[2024-12-02] MEDS: DOXYCYCLINE 100 MG in Normal Saline 100 ML IVPB (00:17)
[2024-12-02] MEDS: Normal Saline 1,000 ML 1000 ML IV (00:17)
== END 2024-12-02 01:14 | disposition home or self-care (01) ==
PROVIDERS: Emergency Provider Student in an Organized Health Care Education/Training Program; PCP Family Medicine
DX: S02.32XA Fracture of orbital floor, left side, initial encounter for closed fracture (principal); S02.842A Fracture of lateral orbital wall, left side, initial encounter for closed fracture; S02.40FA Zygomatic fracture, left side, initial encounter for closed fracture; S02.412A LeFort II fracture, initial encounter for closed fracture; Z23 Encounter for immunization; G40.909 Epilepsy, unspecified, not intractable, without status epilepticus; W21.11XA Struck by baseball bat, initial encounter; Y93.64 Activity, baseball; Y92.320 Baseball field as the place of occurrence of the external cause
CPT/HCPCS: 80053; 90471; 90715; 96365; 96367; 96375; 99284; 70450; 70486; 72125; 80164; 80320; 85025; J0131; J2270

== ENCOUNTER 2025-01-01 14:24 | Emergency (ER) | payer BC, SELFPAY ==
[2025-01-01] VITALS (28 sets, daily range): BP systolic 98–126; BP diastolic 58–81; PULSE 58–101; RESP 6–29; TEMP 35.9; O2SAT 92–100
--- NOTE | 2025-01-01 14:32 | W.ED.GENAD ---
Discharge Plan Disposition Patient Disposition: Home Condition: Good Discharge Details Clinical Impression: Seizure disorder, Bilateral sciatica Primary Care Provider: Richi Nicole ED Provider: Emeka Ye Home Meds and New Rx's Prescriptions: New acetaminophen [Tylenol] 325 mg tablet 975 mg PO ONCE PRNQty: 60 0RF prednisone 50 mg tablet 50 mg PO DAILY Qty: 5 0RF ibuprofen 600 mg tablet 600 mg PO Q6H PRNQty: 30 0RF No Action sertraline 50 mg Tablet 100 mg PO DAILY AM prednisone 50 mg tablet 50 mg PO DAILY Qty: 5 0RF lidocaine [Lidoderm] 5 % adhesive patch,medicated 1 patch Topical Q24H Qty: 15 0RF cyclobenzaprine 10 mg tablet 10 mg PO TID PRN Patient Comments: TAKE ONE TABLET BY MOUTH THREE TIMES A DAY NEEDED ketorolac 10 mg tablet 10 mg PO Q6H PRN Patient Comments: TAKE ONE TABLET BY MOUTH EVERY 6 HOURS NEEDED propranolol 20 mg tablet 20 mg PO DAILY PRN lamotrigine 25 mg tablet 25 mg PO BID Qty: 60 0RF divalproex [Depakote ER] 250 mg Tablet Extended Release 24 Hr 750 mg PO BID Qty: 60 0RF Discharge Instructions Instructions: Epilepsy in adults, Sciatica (DC) Additional Instructions: Please follow-up with your primary care provider regarding your visit to the emergency department today. Be sure to discuss results of all test performed here today to include radiology, and laboratory testing as well as results for any pending cultures. Should your symptoms worsen, or if you develop new concerning symptoms, please return immediately emergency department for further evaluation. Discharge Data Discharge Date/Time-TO BE ENTERED AT DEPARTURE: 01/01/25 18:29 HPI General Date/Time Provider Initiated Documentation: 01/01/25 14:28. HPI Narrative: MDM/Narrative: Initial Assessment: 29-year-old male with epilepsy presenting for seizure. Experienced two seizures today, each lasting several minutes, with postictal anger and aggression. Interval of 4-5 hours between seizures. Severe sciatic pain started 2-3 days ago, radiates down both legs, causing numbness. Differential Diagnosis: - Epileptic seizure: History of epilepsy. Urinary incontinence during sleep. Postictal anger and aggression. Administer lamotrigine orally. Give fosphenytoin to prevent further seizures. Conduct blood work to rule out infection or metabolic issues. - Sciatica: Severe pain radiating down both legs. Numbness in legs. No recent falls or injuries. Significant time in bed due to recent facial surgery. No fevers, chills, urinary issues, diarrhea, or rashes. Painful bathroom use due to back pain. Tried muscle relaxers and ibuprofen. ED Course: Lamotrigine administered orally. Fosphenytoin administered. Blood work conducted. 1750 Results reviewed, lamotrigine levels are therapeutic, patient has been loaded with fosphenytoin. Blood work is otherwise unremarkable, UA urine shows no evidence of infection. Patient on reassessment is resting comfortably, he is now able to stand and ambulate. I suspect that his seizure threshold has been lowered due to his chronic pain from his recent procedure, and since he has been essentially bedbound for the past several weeks, I believe that triggered his sciatica, causing him even more pain and leading to the seizure this morning. Plan of care discussed with the family and they are agreeable to plan for discharge to follow-up with her previously scheduled outpatient neurology visit. Disposition: Discharge: Home. Return if seizures persist or worsen, or if sciatic pain becomes unmanageable. Follow-Up: Neurology appointment. Pain management referral. Patient Education: Discussed seizure management. Pain relief options. Monitoring blood sugar levels. This document was created with assistance from [employer] The patient consented to its use. HPI: The patient is a 29-year-old male with a known history of epilepsy, presenting for evaluation following seizure activity. The patient experienced two seizures today, both witnessed by his son at approximately 0700 hours. The seizures resulted in enuresis during sleep, each episode lasting several minutes, followed by a postictal state characterized by anger and aggression lasting 20-30 minutes. The patient rested for 1.5-2 hours after the first seizure, with the second seizure occurring 4-5 hours later. He is compliant with his prescribed regimen of Depakote and lamotrigine but missed his morning dose of lamotrigine. During his last visit, he experienced a seizure associated with hypoglycemia; administration of chocolate today provided symptomatic relief. The patient reports the onset of sciatic pain 2-3 days ago, rendering him unable to ambulate. The pain originates in the lower back and radiates bilaterally down the legs, accompanied by numbness. He denies any recent falls or injuries. He has been on significant bed rest following recent facial surgery involving the placement of three plates. He denies fever, chills, urinary symptoms, diarrhea, or rashes. He reports difficulty with defecation due to exacerbation of back pain. He has attempted management with muscle relaxants and ibuprofen. PAST SURGICAL HISTORY: Facial surgery with placement of three plates. ROS: Negative besides as mentioned above Exam: Gen: A&O NAD HEENT: NCAT, EOMI, not icteric. External ears normal. No rhinorrhea. Moist mucous membranes. Neck: Supple, full range of motion, no observable masses, No meningeal sign. Lungs: No Respiratory distress. CV: RRR, no edema. Abdomen: Soft, nondistended, No rebound tenderness. MSK: No joint swelling, no redness. Back: No midline CT or L tenderness to palpations, no step-offs or deformities Skin: No rashes, petechiae, lesions. Normal color per patient. Neuro: Normal Gait, Grossly intact. Normal motor strength throughout the lower extremities bilaterally. Psych: Appropriate for situation. Labs: Laboratory Tests Range/Units 01/01/25 01/01/25 01/01/25 14:44 14:52 16:25 WBC (4.4-10.8) 10^3/uL 8.15 RBC (4.36-5.78) 10^6/uL 5.15 Hgb (13.5-17.5) g/dL 15.1 Hct (40.0-50.0) % 44.2 MCV (80-95) fL 86 MCH (27.0-33.0) pg 29.3 MCHC (32.0-36.0) % 34.2 RDW (11.8-14.1) % 12.2 Plt Count (130-400) 10^3/uL 262 MPV (8.0-11.0) fL 9.6 Immature Gran % % 0.4 Neutrophils % % 57.4 Lymphocytes % % 33.5 Monocytes % % 7.4 Eosinophils % % 0.7 Basophils % % 0.6 Nucleated RBC % (0.0-0.3) % 0.0 Absolute Neutrophils (1.2-6.7) 10^3/uL 4.68 Absolute Lymphocytes (1.2-3.4) 10^3/uL 2.73 Absolute Monocytes (0.1-0.8) 10^3/uL 0.60 Absolute Eosinophils (0.0-0.7) 10^3/uL 0.06 Absolute Basophils (0.0-0.2) 10^3/uL 0.05 Sodium (136-145) mmol/L 140 Potassium (3.5-5.1) mmol/L 4.1 Chloride (98-107) mmol/L 103 Carbon Dioxide (21.0-32.0) mmol/L 27.2 Anion Gap (3-11) mmol/L 9.8 BUN (7-18) mg/dL 17 Creatinine (0.70-1.30) mg/dL 1.0 Est GFR (CKD-EPI 2020) (mL/min/1.73m2) 103.84 Glucose (74-106) mg/dL 97 Calcium (8.5-10.1) mg/dL 9.1 Total Bilirubin (0.2-1.0) mg/dL 0.4 AST (15-37) U/L 16 ALT (16-63) U/L 27 Alkaline Phosphatase (46-116) U/L 38 L Total Protein (6.4-8.2) g/dL 7.1 Albumin (3.4-5.0) g/dL 4.3 Urine Color (Yellow) Yellow Urine Clarity (Clear) Clear Urine pH (5-8) 7.0 Ur Specific [place] (1.005-1.025) 1.020 Urine Protein (Neg-Trace) mg/dL Negative Urine Ketones (Negative) mg/dL Trace H Urine Blood (Negative) Negative Urine Nitrite (Negative) Negative Urine Bilirubin (Negative) Negative Urine Urobilinogen (Up to 0.2) mg/dL 0.2 Ur Leukocyte Esterase (Negative) Negative Urine Glucose (Negative) mg/dL Negative Valproic Acid ( - 150) ug/mL 67.0 Radiology: [] Related Data Home Medications ?Medication ?Instructions ?Recorded ?Confirmed sertraline 50 mg tablet 100 mg PO DAILY AM 05/01/18 01/01/25 lidocaine 5 % topical patch 1 patch topical Q24H #15 ea 05/08/24 01/01/25 (Lidoderm) prednisone 50 mg tablet 50 mg PO DAILY #5 tabs 05/08/24 01/01/25 cyclobenzaprine 10 mg tablet 10 mg PO TID PRN 06/26/24 01/01/25 divalproex 250 mg tablet,extended 750 mg (3 x 250 mg) PO BID #60 tabs 06/26/24 01/01/25 release 24 hr (Depakote ER) ketorolac 10 mg tablet 10 mg PO Q6H PRN 06/26/24 01/01/25 lamotrigine 25 mg tablet 25 mg PO BID #60 tabs 06/26/24 01/01/25 propranolol 20 mg tablet 20 mg PO DAILY PRN 06/26/24 01/01/25 acetaminophen 325 mg tablet 975 mg (3 x 325 mg) PO ONCE PRN 01/01/25 (Tylenol) #60 tabs ibuprofen 600 mg tablet 600 mg PO Q6H PRN #30 tabs 01/01/25 prednisone 50 mg tablet 50 mg PO DAILY #5 tabs 01/01/25 Previous Rx's ?Medication ?Instructions ?Recorded lidocaine 5 % topical patch 1 patch topical Q24H #15 ea 05/08/24 (Lidoderm) prednisone 50 mg tablet 50 mg PO DAILY #5 tabs 05/08/24 divalproex 250 mg tablet,extended 750 mg (3 x 250 mg) PO BID #60 tabs 06/26/24 release 24 hr (Depakote ER) lamotrigine 25 mg tablet 25 mg PO BID #60 tabs 06/26/24 acetaminophen 325 mg tablet 975 mg (3 x 325 mg) PO ONCE PRN 01/01/25 (Tylenol) #60 tabs ibuprofen 600 mg tablet 600 mg PO Q6H PRN #30 tabs 01/01/25 prednisone 50 mg tablet 50 mg PO DAILY #5 tabs 01/01/25 Allergies Allergy/AdvReac Type Severity Reaction Status Date / Time penicillamine Allergy Mild Skin Rash Unverified 01/01/25 14:42 levetiracetam (From [facility]) AdvReac Severe Other (See Unverified 01/01/25 14:42 Comment) erythromycin base AdvReac Other (See Unverified 01/01/25 14:42 Comment) sulfamethoxazole (From AdvReac Other (See Unverified 01/01/25 14:42 Bactrim) Comment) trimethoprim (From Bactrim) AdvReac Other (See Unverified 01/01/25 14:42 Comment) General OLEKSANDR: 3 Medical Decision Making Quality:SDOH Health Related Social Needs: Health related social needs education PFSH All Active Problems (Updated 01/01/25 @ 18:01 by Emeka Ye MD) Bilateral sciatica (Acute) Seizure disorder (Chronic) Fracture of left maxillary sinus (Acute) Fracture of left zygomatic arch (Acute) Fracture of left orbit (Acute) Medical History (Updated 01/01/25 @ 18:01 by Emeka Ye MD) ADHD Social History Smoking/Tobacco Use Status: Current every day Tobacco Type: e-cigarettes Smoking risk assessment performed?: Yes Alcohol Intake: current Alcohol Intake frequency: holidays/special occasions only Alcohol type: beer Drug use: Daily Substance use type: marijuana Housing: house Do you feel safe at home: Yes Do you feel safe in your relationship?: Yes
[2025-01-01 14:53] LABS: Abs Immature Grans 0.03 10^3/uL (0.0-0.06); HCT 44.2 % (40.0-50.0); HGB 15.1 g/dL (13.5-17.5); Immature Grans % 0.4 %; MCH 29.3 pg (27.0-33.0); MCHC 34.2 % (32.0-36.0); MCV 86 fL (80-95); MPV 9.6 fL (8.0-11.0); Platelet Count 262 10^3/uL (130-400); RBC 5.15 10^6/uL (4.36-5.78); RDW 12.2 % (11.8-14.1); RDW-SD 38.5 fL; WBC 8.15 10^3/uL (4.4-10.8)
[2025-01-01] MEDS: HYDROmorphone 2 MG/ML SYR 1 MG IVP (14:57)
[2025-01-01] MEDS: Ketorolac 15 MG/ML VIAL IVP (14:58)
[2025-01-01] MEDS: ACETAMINOPHEN 1,000 MG/100 ML BAG 400 MG IVPB (14:59)
[2025-01-01 15:15] LABS: ALT 27 U/L (16-63); AST 16 U/L (15-37); Albumin 4.3 g/dL (3.4-5.0); Alkaline Phosphatase 38 U/L (46-116); Anion Gap 9.8 mmol/L (3-11); BUN 17 mg/dL (7-18); Bilirubin, Total 0.4 mg/dL (0.2-1.0); CO2 27.2 mmol/L (21.0-32.0); Calcium 9.1 mg/dL (8.5-10.1); Chloride 103 mmol/L (98-107); Estimated GFR 103.84 (mL/min/1.73m2); Glucose 97 mg/dL (74-106); Potassium 4.1 mmol/L (3.5-5.1); Sodium 140 mmol/L (136-145); Total Protein 7.1 g/dL (6.4-8.2)
[2025-01-01] MEDS: lamoTRIgine 25 MG TAB PO (15:27)
[2025-01-01] MEDS: Lactated Ringers 1,000 ML 2000 ML IV (16:26)
[2025-01-01 16:32] LABS: Glucose Negative (Negative)
[2025-01-01] MEDS: Cetirizine 10 MG TAB PO (17:51)
[2025-01-01] MEDS: predniSONE 20 MG TAB 40 MG PO (18:17)
== END 2025-01-01 18:29 | disposition home or self-care (01) ==
PROVIDERS: Emergency Provider General Practice; PCP Family Medicine
DX: G40.909 Epilepsy, unspecified, not intractable, without status epilepticus (principal); M54.31 Sciatica, right side; M54.32 Sciatica, left side
CPT/HCPCS: 80053; 80175; 96361; 96365; 96367; 96375; 99284; 80164; 81003; 85025; J0131; J1171; J1885; J7512; Q2009